=== PATIENT | female | born 1945 | race Caucasian/White ===

== ENCOUNTER 2019-02-21 16:46 | Inpatient (IN) ==
[2019-02-21] MEDS ORDERED: IOPAMIDOL 100 ML BOTTLE IV ONE (16:47)
--- NOTE | 2019-02-21 18:58 | Emergency Department Note ---
Weakness HPI - General Chief complaint: Weakness Stated complaint: Barely eating, weak Time Seen by Provider: 02/21/19 18:32 Source: patient Mode of arrival: wheelchair Limitations: no limitations - History of Present Illness HPI Narrative: 73-year-old, rather medically complex, morbidly obese, female patient presents emergency department with vague constellation of worsening fatigue, anorexia, instability, dizziness, and generalized unwell feeling for approximately 4 weeks. She recently fractured her left foot. She tells me since that time she has had the above mentioned symptoms. Her and adult daughter, who are accompanying her, tell me that she is had a poor appetite from most a month. They mention her only eating "1 or 2 grapes a day". She is had a poor oral intake of fluid as well. Her mentions that she is having considerable difficulty simply moving from her couch into the bathroom (10-15 feet). She admits to feeling "cold all the time". She is unsure about subjective fevers. She denies sweats. She denies sinus congestion. She admits to a chronic runny nose. She admits to a productive cough. She is producing white in color sputum. She admits to urticaria and redness around both eyes for the last month . She denies any new exposures. She admits to worsening shortness of breath. She denies retrosternal chest pain or palpitations. She denies abdominal pain. She admits to ongoing nausea and occasional vomiting. She denies constipation or diarrhea. She admits to several skin ulcerations around her pannus that are being treated by wound specialists and home nursing staff. She admits to genera lized weakness but no focal weakness. A review of her active problems shows the following: Closed fibular fracture, hyperparathyroidism, arthritis, hypothyroidism, hyperlipidemia, hypertension, breast CA, gout, vertigo, morbid obesity, poorly controlled type 2 diabetes, chronic low back pain, chronic kidney disease, hyperlipidemia, left lower extremity lymphedema. - Related Data Home Medications Medication Instructions Recorded Confirmed allopurinol 300 mg tablet 300 mg PO QDAY 12/08/17 01/24/19 anastrozole 1 mg tablet 1 mg PO QDAY 12/08/17 12/08/17 aspirin 81 mg tablet,delayed 81 mg PO QDAY 12/08/17 01/24/19 release ergocalciferol (vitamin D2) 1,000 tab PO 12/08/17 04/05/18 unit tablet levothyroxine 150 mcg capsule 300 mcg PO QDAY 12/08/17 01/24/19 simvastatin 40 mg tablet 40 mg PO QHS 12/08/17 01/24/19 furosemide 20 mg tablet 20 mg PO QDAY 01/24/19 01/24/19 gabapentin 300 mg capsule 300 mg PO QID PRN cap 01/24/19 01/24/19 insulin aspart U-100 100 unit/mL See Rx Instructions SUB-Q .COMPLEX 01/24/19 01/24/19 (3 mL) subcutaneous pen PRN insulin glargine U-300 conc 300 74 unit SUB-Q QAM ml 01/24/19 01/24/19 unit/mL (3 mL) subcutaneous pen krill 300 mg-omega 3 90 mg-dha 24 1 cap PO QDAY 01/24/19 01/24/19 mg-epa 50 [id number] capsule lisinopril 10 mg tablet 10 mg PO QDAY 01/24/19 01/24/19 polyethylene glycol 3350 17 17 g PO QDAY PRN 01/24/19 01/24/19 gram/dose oral powder sennosides 8.6 mg tablet 8.6 mg PO QDAY tab 01/24/19 01/24/19 sodium phosphates 19 gram-7 118 ml PA ONCE 01/24/19 01/24/19 gram/118 mL enema tramadol 50 mg tablet See Rx Instructions PO Q6H PRN tab 01/24/19 01/24/19 Previous Rx's Medication Instructions Recorded hydrocodone 5 mg-acetaminophen 325 1 tab PO Q6H PRN #15 tab 04/10/18 mg tablet Allergies Allergy/AdvReac Type Severity Reaction Status Date / Time No Known Drug Allergies Allergy Verified 04/05/18 13:46 Review of Systems All systems ED: reviewed and negative except as stated. Past Medical History - Social History smoking status: Never smoker Physical Exam Limitations: physical limitation (Patient is morbidly obese with a large pannus making abdominal examination very difficult.) General appearance: alert, in no apparent distress (No acute respiratory distress.), malaise, obese, sleepy Head: atraumatic, normocephalic Eye: Present: normal appearance, PERRL, EOMI, other (Erythema surrounding both eyes. No excessive tearing. No other drainage.). Absent: scleral icterus, conjunctival injection ENT: Present: normal oropharynx, mucous membranes dry. Absent: nasal congestion Neck: Present: trachea midline. Absent: lymphadenopathy, thyromegaly Chest: Present: symmetric chest wall rise Respiratory: Present: normal lung sounds bilaterally. Absent: respiratory distress, rales/crackles, wheezes, stridor, accessory muscle use Cardiovascular: Present: regular rate, normal rhythm. Absent: systolic murmur, diastolic murmur Abdominal: Present: soft, tenderness, diminished bowel sounds, other (Patient has an extremely large abdomen and pannus. This makes the abdominal exam significantly difficult. She did experience some tenderness to palpation of the left upper quadrant on exam.). Absent: guarding, rebound Abdominal tenderness: Present: LUQ, mild Extremities: Present: full ROM, normal capillary refill, pedal edema, pretibial edema. Absent: normal inspection, calf tenderness Back: Present: full ROM. Absent: tenderness Neurological: Present: alert, oriented X3, motor sensory deficit (Strength testing 5/5 to upper lower extremities.). Absent: normal gait (Patient been using motorized wheelchair.) Psychiatric: Present: depressed, anxious Skin: Present: warm, dry, other (Rash around both eyes as mentioned. Patient h as a somewhat foul-smelling superficial skin ulcer to the left side of her pannus. This is some clear drainage. No streaking.) Course Course Narrative: Patient was brought into the emergency department and a history and physical exam was performed. She currently has a vascular port that was accessed. Laboratory studies were drawn. Patient is given normal saline 1000 mL bolus. A review of her laboratory studies show the following: CBC hemoglobin 15.5, hematocrit 48.7, platelet count 136, all others normal limits. CMP chloride 93, carbon dioxide 20, anion gap 22, BUN 28, creatinine 1.5, GFR 34, glucose 1.81, calcium 12.8, alkaline phosphatase 189, all others normal limits. Lactic acid 1.8. After reviewing all this data I discussed the findings with our hospitalist (Dr. Tobar). At this time Dr. Tobar mention that she is rather dehydrated and would need aggressive fluid rehydration due to her calcium issue. He reviewed her medication list and recommended holding both the patient's Lasix and lisinopril at discharge until seen be seen by PCP. He did recommend close follow-up with this Sunday (02/24) with her PCP. With this in mind, I ordered a second 1000 mL bolus of normal saline and added a TSH to her labs. At shift change, she has continued to receive the IV fluid boluses as previously ordered. It is my understanding that the patient is wanting to stay and possibly be admitted to a correction for further convalescence. Based on her clinical findings today she likely does not meet criteria for hospital admission. At shift change I discussed the case with my collaborating physician (Dr. Barrett) who is now assumed the patient's care. All further treatment decisions, modalities, and ultimate disposition will be carried out by Dr. Barrett. Vital Signs Temperature 96.8 F L 02/21/19 16:56 Pulse Rate 70 02/21/19 16:56 Respiratory Rate 20 02/21/19 16:56 Blood Pressure 91/63 02/21/19 16:56 Pulse Oximetry (%) 97 02/21/19 16:56 Temperature 96.8 F L 02/21/19 16:56 Pulse Rate 94 H 02/21/19 21:49 Respiratory Rate 20 02/21/19 16:56 Blood Pressure 112/60 02/21/19 21:49 Pulse Oximetry (%) 100 02/21/19 21:49 Weakness - Lab Data Lab results reviewed: Yes I reviewed the patient's lab results. Result diagrams: 02/21/19 19:41 02/21/19 19:41 Lab Results 02/21/19 02/21/19 02/21/19 Range/Units 19:41 19:41 19:41 WBC 9.9 (4.5-11.0) K/mcL RBC 5.18 (4.00-5.20) M/mcL Hgb 15.5 H (12.0-15.0) g/dL Hct 48.7 H (36.0-48.0) % MCV 93.9 (80.0-100.0) fL MCH 29.9 (26.0-34.0) pg MCHC 31.9 (31.0-36.0) g/dL RDW 13.9 (11.5-14.5) % Plt Count 136 L (140-440) K/mcL MPV 13.7 H (7.4-10.4) fL Gran % 75.2 (38.0-78.0) % Lymph % (Auto) 15.4 L (15.5-49.0) % Vance % (Auto) 9.0 (1.0-12.0) % Eos % (Auto) 0.1 (0.0-7.0) % Baso % (Auto) 0.3 (0.0-2.0) % Gran # 7.4 (1.8-8.0) K/mcL Lymph # (Auto) 1.5 (1.5-4.8) K/mcL Vance # (Auto) 0.9 (0.1-0.9) K/mcL Eos # (Auto) 0 (0.0-0.7) K/mcL Baso # (Auto) 0 (0.0-0.3) K/mcL VBG Lactic Acid 1.8 (0.5-2.0) mmol/L Sodium 135 (133-145) mmol/L Potassium 3.9 (3.3-5.1) mmol/L Chloride 93 L (96-108) mmol/L Carbon Dioxide 20 L (22-30) mmol/L Anion Gap 22.0 H (8-16) BUN 28 H (8-23) mg/dl Creatinine 1.5 H (0.6-1.1) mg/dl GFR Calculation 34 Glucose 181 H (70-105) mg/dL Calcium 12.8 H (8.6-10.4) mg/dl Total Bilirubin 0.5 (0.0-1.0) mg/dL AST 17 (0-37) U/l ALT 8 (0-40) U/l Alkaline Phosphatase 189 H (39-117) U/L Total Protein 6.8 (5.9-8.4) gm/dL Albumin 3.5 (3.2-5.2) gm/dL Globulin 3.3 (2.2-3.7) gm/dL Albumin/Globulin Ratio 1.1 (1.0-2.3) TSH (0.27-5.01) uIU/ml Urine Color Urine Appearance Urine pH (5.0-9.0) Ur Specific [place] (1.000-1.035) Urine Protein (NEG) mg/dL Urine Glucose (UA) (NEG) mg/dL Urine Ketones (NEG) mg/dL Urine Occult Blood (<0.03) mg/dL Urine Nitrate (NEG) Urine Bilirubin (NEG) mg/dL Urine Ictotest (NEG) Urine Urobilinogen (NEG) mg/dL Ur Leukocyte Esterase (NEG) /uL Urine RBC (0-1) /hpf Urine WBC (0-4) /hpf Ur Squamous Epith Cells (0-4) /hpf Calcium Oxalate Crystal (0) /hpf Amorphous Crystals (0) /hpf Urine Bacteria (0) /hpf Hyaline Casts (0-2) /lpf Urine Mucus (0) /hpf Ur Culture Indicated? 02/21/19 02/21/19 Range/Units 19:41 20:25 WBC (4.5-11.0) K/mcL RBC (4.00-5.20) M/mcL Hgb (12.0-15.0) g/dL Hct (36.0-48.0) % MCV (80.0-100.0) fL MCH (26.0-34.0) pg MCHC (31.0-36.0) g/dL RDW (11.5-14.5) % Plt Count (140-440) K/mcL MPV (7.4-10.4) fL Gran % (38.0-78.0) % Lymph % (Auto) (15.5-49.0) % Vance % (Auto) (1.0-12.0) % Eos % (Auto) (0.0-7.0) % Baso % (Auto) (0.0-2.0) % Gran # (1.8-8.0) K/mcL Lymph # (Auto) (1.5-4.8) K/mcL Vance # (Auto) (0.1-0.9) K/mcL Eos # (Auto) (0.0-0.7) K/mcL Baso # (Auto) (0.0-0.3) K/mcL VBG Lactic Acid (0.5-2.0) mmol/L Sodium (133-145) mmol/L Potassium (3.3-5.1) mmol/L Chloride (96-108) mmol/L Carbon Dioxide (22-30) mmol/L Anion Gap (8-16) BUN (8-23) mg/dl Creatinine (0.6-1.1) mg/dl GFR Calculation Glucose (70-105) mg/dL Calcium (8.6-10.4) mg/dl Total Bilirubin (0.0-1.0) mg/dL AST (0-37) U/l ALT (0-40) U/l Alkaline Phosphatase (39-117) U/L Total Protein (5.9-8.4) gm/dL Albumin (3.2-5.2) gm/dL Globulin (2.2-3.7) gm/dL Albumin/Globulin Ratio (1.0-2.3) TSH 0.02 L (0.27-5.01) uIU/ml Urine Color Molly Urine Appearance Cloudy Urine pH 5.0 (5.0-9.0) Ur Specific [place] 1.024 (1.000-1.035) Urine Protein 100 A (NEG) mg/dL Urine Glucose (UA) 50 A (NEG) mg/dL Urine Ketones 5/tr A (NEG) mg/dL Urine Occult Blood Neg (<0.03) mg/dL Urine Nitrate Neg (NEG) Urine Bilirubin Neg (NEG) mg/dL Urine Ictotest Neg (NEG) Urine Urobilinogen 4.0 A (NEG) mg/dL Ur Leukocyte Esterase Neg (NEG) /uL Urine RBC 6 H (0-1) /hpf Urine WBC 3 (0-4) /hpf Ur Squamous Epith Cells 5 H (0-4) /hpf Calcium Oxalate Crystal Few A (0) /hpf Amorphous Crystals Few A (0) /hpf Urine Bacteria 0 (0) /hpf Hyaline Casts 72 H (0-2) /lpf Urine Mucus Mod (0) /hpf Ur Culture Indicated? No - EKG Data EKG attestation: Yes I reviewed and interpreted this EKG., Yes There are no EKG findings of acute coronary syndrome, Yes This EKG will be read by dentist attendant Disposition Pt seen by APPRENTICE MACHINIST OUTSIDE/PA only: No (Dr. Barrett) Clinical Impression: Dehydration, Morbid (severe) obesity due to excess calories, Hypercalcemia, Physical deconditioning Chronic kidney disease Qualifiers: Chronic kidney disease stage: stage 3 (moderate) Qualified Code(s): N18.3 - Chronic kidney disease, stage 3 (moderate) Disposition: Still a Patient Condition: Serious Additional Instructions: At shift change patient care is being transferred to my collaborating physician (Dr. Barrett). All further treatment decisions, more to have the patient disposition is going to be carried out by him. Referrals: Estrella Luz ARNP [Nurse Practitioner] -
[2019-02-21] MEDS ORDERED: 0.9 % SODIUM CHLORIDE 1,000 ML IV ONE ×2 (19:03→21:32)
[2019-02-21 20:50] LABS: ALT/SGPT 8 U/l (0-40); AST/SGOT 17 U/l (0-37); Albumin 3.5 gm/dL (3.2-5.2); Albumin/Globulin Ratio 1.1 (1.0-2.3); Alkaline Phosphatase 189 U/L (39-117); Bilirubin,Total 0.5 mg/dL (0.0-1.0); Blood Urea Nitrogen 28 mg/dl (8-23); Calcium 12.8 mg/dl (8.6-10.4); Carbon Dioxide 20 mmol/L (22-30); Globulin 3.3 gm/dL (2.2-3.7); Glomerular Filtration Rate 34; Glucose 181 mg/dL (70-105)
[2019-02-21 20:55] LABS: Basophils # (Auto) 0 K/mcL (0.0-0.3); Basophils % (Auto) 0.3 % (0.0-2.0); Eosinophils # (Auto) 0 K/mcL (0.0-0.7); Eosinophils % (Auto) 0.1 % (0.0-7.0); Granulocytes % (Auto) 75.2 % (38.0-78.0); Hematocrit 48.7 % (36.0-48.0); Hemoglobin 15.5 g/dL (12.0-15.0); Lymphocytes # (Auto) 1.5 K/mcL (1.5-4.8); Lymphocytes % (Auto) 15.4 % (15.5-49.0); Mean Cell Volume 93.9 fL (80.0-100.0); Mean Corpuscular HGB Conc 31.9 g/dL (31.0-36.0); Mean Platelet Volume 13.7 fL (7.4-10.4); Monocytes # (Auto) 0.9 K/mcL (0.1-0.9); Platelet Count 136 K/mcL (140-440); RBC 5.18 M/mcL (4.00-5.20); Red Cell Distribution Width 13.9 % (11.5-14.5); WBC 9.9 K/mcL (4.5-11.0)
[2019-02-21 20:58] LABS: Chloride 93 mmol/L (96-108)
[2019-02-21 21:30] LABS: Appearance,Urine CLOUDY; Bacteria,Urine 0 /hpf (0); Bilirubin,Urine NEG (NEG); Calcium Oxalate Crystals,Urine FEW /hpf (0); Color,Urine AMBER; Culture Indicated,Urine NO; Glucose,Urine (UA) 50 mg/dL (NEG); Ictotest,Urine NEG (NEG); Ketones,Urine 5/TR mg/dL (NEG); Leukocyte Esterase,Urine NEG /uL (NEG); Mucus,Urine MOD /hpf (0); Nitrate,Urine NEG (NEG); Protein,Urine 100 mg/dL (NEG); Specific Gravity,Urine 1.024 (1.000-1.035); Urine Amorphous Crystals FEW /hpf (0); Urine Blood NEG mg/dL (<0.03); Urine Hyaline Cast 72 /lpf (0-2); Urine RBC 6 /hpf (0-1); Urine Squamous Epithelial Cell 5 /hpf (0-4); Urine WBC 3 /hpf (0-4)
[2019-02-21] MEDS ORDERED: ONDANSETRON 4 MG/2 ML VIAL IV ONE (22:53)
[2019-02-21] MEDS ORDERED: ONDANSETRON 4 MG/2 ML VIAL ONE (22:55)
--- NOTE | 2019-02-22 01:50 | Emergency Department Note ---
Weakness HPI - General Chief complaint: Weakness Stated complaint: Barely eating, weak Time Seen by Provider: 02/21/19 18:32 Source: patient Mode of arrival: wheelchair Limitations: physical limitation (Patient is morbidly obese with a large pannus making abdominal examination very difficult.) - History of Present Illness HPI Narrative: See history and physical dictated by Andrew Summers PA-C (Sonny). I am following up patient after change in shift. She gives history of 4 weeks of not feeling well and eating poorly as well as some shortness of breath. Labs reviewed included lactic acid 1.8, BUN 28 creatinine 1.5, calcium 12.8, alkaline phosphatase 189. She currently has a Port-A-Cath. Family is pointing out that they are no longer able to really take good care of her based on her multiple medical conditions and problems that include urinary incontinence, imbalance and falls, severe weight, etc. She has not been able to reliably ambulate or shower herself. She is developed sores on the underside of her panniculus and on her right buttocks. She has seen oncology 2 months ago and is not scheduled to recheck with them for an additional multiple months, i.e., 6 months after the last visit. Patient gets free nauseated and sometimes vomits or dry heaves when she tries to be more active such as getting into the bathroom. She is unable to wipe her self and clean herself; she is unable to shower by herself. Even just 1 month ago she was being quite a bit more active. - Related Data Home Medications Medication Instructions Recorded Confirmed allopurinol 300 mg tablet 300 mg PO QDAY 12/08/17 02/22/19 aspirin 81 mg tablet,delayed 81 mg PO QDAY 12/08/17 02/22/19 release levothyroxine 150 mcg capsule 300 mcg PO QDAY 12/08/17 02/22/19 furosemide 20 mg tablet 20 mg PO QDAY 01/24/19 02/22/19 insulin aspart U-100 100 unit/mL See Rx Instructions SUB-Q .COMPLEX 01/24/19 01/24/19 (3 mL) subcutaneous pen PRN insulin glargine U-300 conc 300 74 unit SUB-Q QAM ml 01/24/19 01/24/19 unit/mL (3 mL) subcutaneous pen krill 300 mg-omega 3 90 mg-dha 24 1 cap PO QDAY 01/24/19 02/22/19 mg-epa 50 [id number] capsule lisinopril 10 mg tablet 10 mg PO QDAY 01/24/19 02/22/19 polyethylene glycol 3350 17 17 g PO QDAY PRN 01/24/19 02/22/19 gram/dose oral powder sennosides 8.6 mg tablet 8.6 mg PO QDAY tab 01/24/19 02/22/19 sodium phosphates 19 gram-7 118 ml VT ONCE 01/24/19 02/22/19 gram/118 mL enema tramadol 50 mg tablet See Rx Instructions PO Q6H PRN tab 01/24/19 02/22/19 Insulin Glargine,Hum.rec.anlog 80 units SQ QAM 02/22/19 02/22/19 [Jose Jo] Previous Rx's Medication Instructions Recorded hydrocodone 5 mg-acetaminophen 325 1 tab PO Q6H PRN #15 tab 04/10/18 mg tablet Allergies Allergy/AdvReac Type Severity Reaction Status Date / Time No Known Drug Allergies Allergy Verified 04/05/18 13:46 Past Medical History - Social History smoking status: Never smoker Physical Exam Limitations: physical limitation (Patient is morbidly obese with a large pannus making abdominal examination very difficult.) General appearance: alert, in no apparent distress (No acute respiratory distress.), malaise, obese, sleepy Head: atraumatic, normocephalic Eye: Present: EOMI Chest: Present: symmetric chest wall rise Respiratory: Absent: respiratory distress Abdominal: Present: other (very large) Neurological: Present: alert, oriented X3 Psychiatric: Present: normal affect, normal mood Course Vital Signs Temperature 96.8 F L 02/21/19 16:56 Pulse Rate 70 02/21/19 16:56 Respiratory Rate 20 02/21/19 16:56 Blood Pressure 91/63 02/21/19 16:56 Pulse Oximetry (%) 97 02/21/19 16:56 Temperature 98.6 F 02/22/19 02:24 Pulse Rate 107 H 02/22/19 02:24 Respiratory Rate 18 02/22/19 02:17 Blood Pressure 137/70 02/22/19 02:16 Pulse Oximetry (%) 96 02/22/19 02:24 Weakness - Lab Data Lab results reviewed: Yes I reviewed the patient's lab results. Result diagrams: 02/21/19 19:41 02/21/19 19:41 Lab Results 02/21/19 02/21/19 02/21/19 Range/Units 19:41 19:41 19:41 WBC 9.9 (4.5-11.0) K/mcL RBC 5.18 (4.00-5.20) M/mcL Hgb 15.5 H (12.0-15.0) g/dL Hct 48.7 H (36.0-48.0) % MCV 93.9 (80.0-100.0) fL MCH 29.9 (26.0-34.0) pg MCHC 31.9 (31.0-36.0) g/dL RDW 13.9 (11.5-14.5) % Plt Count 136 L (140-440) K/mcL MPV 13.7 H (7.4-10.4) fL Gran % 75.2 (38.0-78.0) % Lymph % (Auto) 15.4 L (15.5-49.0) % [place] % (Auto) 9.0 (1.0-12.0) % Eos % (Auto) 0.1 (0.0-7.0) % Baso % (Auto) 0.3 (0.0-2.0) % Gran # 7.4 (1.8-8.0) K/mcL Lymph # (Auto) 1.5 (1.5-4.8) K/mcL [place] # (Auto) 0.9 (0.1-0.9) K/mcL Eos # (Auto) 0 (0.0-0.7) K/mcL Baso # (Auto) 0 (0.0-0.3) K/mcL VBG Lactic Acid 1.8 (0.5-2.0) mmol/L Sodium 135 (133-145) mmol/L Potassium 3.9 (3.3-5.1) mmol/L Chloride 93 L (96-108) mmol/L Carbon Dioxide 20 L (22-30) mmol/L Anion Gap 22.0 H (8-16) BUN 28 H (8-23) mg/dl Creatinine 1.5 H (0.6-1.1) mg/dl GFR Calculation 34 Glucose 181 H (70-105) mg/dL Calcium 12.8 H (8.6-10.4) mg/dl Total Bilirubin 0.5 (0.0-1.0) mg/dL AST 17 (0-37) U/l ALT 8 (0-40) U/l Alkaline Phosphatase 189 H (39-117) U/L Total Protein 6.8 (5.9-8.4) gm/dL Albumin 3.5 (3.2-5.2) gm/dL Globulin 3.3 (2.2-3.7) gm/dL Albumin/Globulin Ratio 1.1 (1.0-2.3) TSH (0.27-5.01) uIU/ml Urine Color Urine Appearance Urine pH (5.0-9.0) Ur Specific [place] (1.000-1.035) Urine Protein (NEG) mg/dL Urine Glucose (UA) (NEG) mg/dL Urine Ketones (NEG) mg/dL Urine Occult Blood (<0.03) mg/dL Urine Nitrate (NEG) Urine Bilirubin (NEG) mg/dL Urine Ictotest (NEG) Urine Urobilinogen (NEG) mg/dL Ur Leukocyte Esterase (NEG) /uL Urine RBC (0-1) /hpf Urine WBC (0-4) /hpf Ur Squamous Epith Cells (0-4) /hpf Calcium Oxalate Crystal (0) /hpf Amorphous Crystals (0) /hpf Urine Bacteria (0) /hpf Hyaline Casts (0-2) /lpf Urine Mucus (0) /hpf Ur Culture Indicated? 02/21/19 02/21/19 Range/Units 19:41 20:25 WBC (4.5-11.0) K/mcL RBC (4.00-5.20) M/mcL Hgb (12.0-15.0) g/dL Hct (36.0-48.0) % MCV (80.0-100.0) fL MCH (26.0-34.0) pg MCHC (31.0-36.0) g/dL RDW (11.5-14.5) % Plt Count (140-440) K/mcL MPV (7.4-10.4) fL Gran % (38.0-78.0) % Lymph % (Auto) (15.5-49.0) % [place] % (Auto) (1.0-12.0) % Eos % (Auto) (0.0-7.0) % Baso % (Auto) (0.0-2.0) % Gran # (1.8-8.0) K/mcL Lymph # (Auto) (1.5-4.8) K/mcL [place] # (Auto) (0.1-0.9) K/mcL Eos # (Auto) (0.0-0.7) K/mcL Baso # (Auto) (0.0-0.3) K/mcL VBG Lactic Acid (0.5-2.0) mmol/L Sodium (133-145) mmol/L Potassium (3.3-5.1) mmol/L Chloride (96-108) mmol/L Carbon Dioxide (22-30) mmol/L Anion Gap (8-16) BUN (8-23) mg/dl Creatinine (0.6-1.1) mg/dl GFR Calculation Glucose (70-105) mg/dL Calcium (8.6-10.4) mg/dl Total Bilirubin (0.0-1.0) mg/dL AST (0-37) U/l ALT (0-40) U/l Alkaline Phosphatase (39-117) U/L Total Protein (5.9-8.4) gm/dL Albumin (3.2-5.2) gm/dL Globulin (2.2-3.7) gm/dL Albumin/Globulin Ratio (1.0-2.3) TSH 0.02 L (0.27-5.01) uIU/ml Urine Color Molly Urine Appearance Cloudy Urine pH 5.0 (5.0-9.0) Ur Specific [place] 1.024 (1.000-1.035) Urine Protein 100 A (NEG) mg/dL Urine Glucose (UA) 50 A (NEG) mg/dL Urine Ketones 5/tr A (NEG) mg/dL Urine Occult Blood Neg (<0.03) mg/dL Urine Nitrate Neg (NEG) Urine Bilirubin Neg (NEG) mg/dL Urine Ictotest Neg (NEG) Urine Urobilinogen 4.0 A (NEG) mg/dL Ur Leukocyte Esterase Neg (NEG) /uL Urine RBC 6 H (0-1) /hpf Urine WBC 3 (0-4) /hpf Ur Squamous Epith Cells 5 H (0-4) /hpf Calcium Oxalate Crystal Few A (0) /hpf Amorphous Crystals Few A (0) /hpf Urine Bacteria 0 (0) /hpf Hyaline Casts 72 H (0-2) /lpf Urine Mucus Mod (0) /hpf Ur Culture Indicated? No Disposition Pt seen by GROUP EXERCISE INSTRUCTOR/PA only: No Clinical Impression: Dehydration, Morbid (severe) obesity due to excess calories, Hypercalcemia, Physical deconditioning, Iatrogenic hyperthyroidism, Anorexia, Self-care deficit for bathing and hygiene, Bedridden, Elevated alkaline phosphatase level Chronic kidney disease Qualifiers: Chronic kidney disease stage: stage 3 (moderate) Qualified Code(s): N18.3 - Chronic kidney disease, stage 3 (moderate) Summary: With patient's significant anorexia and poor oral intake with some described vomiting, CT scan of the abdomen was obtained and this was read as unremarkable/negative. Labs were reviewed and summarized in her disposition. She is being admitted to observation under Dr. Tobar. I spoke with him and with warehouse shipping clerk. Patient has significant risk and major concerns and self-care deficits and inability of family to take care of her such that returning home is significantly problematic and harmful to patient. Orders written for her for hospital care. Of note is that no GI is available for consultation or upper endoscopy. Consider if surgeon potentially would do upper scope. Disposition: Xfer As Outpt/Obs ([facility]) Condition: Serious Referrals: Estrella Luz ARNP [Nurse Practitioner] -
[2019-02-22] MEDS ORDERED: ONDANSETRON 4 MG/2 ML VIAL IV PRN ×2 (02:33→10:06)
[2019-02-22] MEDS ORDERED: ONDANSETRON 4 MG/2 ML VIAL IV ONE (02:43)
[2019-02-22] MEDS ORDERED: LACTATED RINGERS 1,000 ML IV SCH (02:45)
[2019-02-22 05:07] LABS: Basophils # (Auto) 0 K/mcL (0.0-0.3); Basophils % (Auto) 0.1 % (0.0-2.0); Eosinophils # (Auto) 0 K/mcL (0.0-0.7); Eosinophils % (Auto) 0.4 % (0.0-7.0); Hematocrit 43.5 % (36.0-48.0); Hemoglobin 13.6 g/dL (12.0-15.0); Lymphocytes # (Auto) 1.7 K/mcL (1.5-4.8); Lymphocytes % (Auto) 15.1 % (15.5-49.0); Mean Cell Volume 95.6 fL (80.0-100.0); Mean Corpuscular HGB Conc 31.4 g/dL (31.0-36.0); Mean Platelet Volume 12.7 fL (7.4-10.4); Monocytes # (Auto) 1.6 K/mcL (0.1-0.9); Monocytes % (Auto) 13.4 % (1.0-12.0); Platelet Count 164 K/mcL (140-440); RBC 4.55 M/mcL (4.00-5.20); Red Cell Distribution Width 13.9 % (11.5-14.5); WBC 11.6 K/mcL (4.5-11.0)
[2019-02-22 05:33] LABS: Bilirubin,Direct < 0.2 mg/dL (0.0-0.3); Chloride 100 mmol/L (96-108)
[2019-02-22 05:36] LABS: ALT/SGPT < 5 U/l (0-40); AST/SGOT 14 U/l (0-37); Albumin 2.7 gm/dL (3.2-5.2); Albumin/Globulin Ratio 0.8 (1.0-2.3); Alkaline Phosphatase 165 U/L (39-117); Bilirubin,Total 0.4 mg/dL (0.0-1.0); Blood Urea Nitrogen 31 mg/dl (8-23); Calcium 11.4 mg/dl (8.6-10.4); Carbon Dioxide 19 mmol/L (22-30); Globulin 3.3 gm/dL (2.2-3.7); Glomerular Filtration Rate 34; Glucose 159 mg/dL (70-105); Lactate Dehydrogenase 259 U/L (94-250); Triglycerides 132 mg/dl (<150)
[2019-02-22] MEDS ORDERED: MAGNESIUM SULFATE 2 GM/50 ML BAG IV ONE (07:20)
--- NOTE | 2019-02-22 07:25 | Internal Med History&Physical ---
Medical - H&P: [facility] Patient information: Note initiated : 02/22/19 at 7:22 am Service Date, if different from initiated Date: [] Patient: Mel Peacock a 73 y/o F admitted on 02/22/19 for Barely eating, weak. Chief Complaint: [] History of present illness: Ms. Peacock is a 73 year old F Presents to the ED with generalized weakness malaise/ poor appetite/ nausea, tachycardia, dyspnea on exertion. Feeling cold all the time. Has itchy eyes. Denies sweats chest pain abdominal pain diarrhea. This is been going on for about 4 weeks, around the time she fractured her left foot. She has a Port-A-Cath for breast cancer last chemotherapy was year ago. Work-up in the ED included CT abdomen pelvis which was unremarkable. Laboratory work revealed including urine and indicative of volume depletion. TSH severely low. CXR unremarkable Review of Systems: Pertinent positives as above. Denies headache/fever/chills/vomiting/chest or abdominal pain/diarrhea. 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) Diabetes mellitus type II, uncontrolled (Chronic) Adenocarcinoma, breast (Resolved) Closed fibular fracture (Acute) Dehydration (Acute) Hypercalcemia (Acute) Physical deconditioning (Acute) Hyperparathyroidism (Chronic) Hyperlipidemia (Chronic) Hypertension (Chronic) Morbid (severe) obesity due to excess calories (Chronic) Body mass index (BMI) 40.0-44.9, adult (Chronic) Hypothyroidism (Chronic) Gout (Chronic) Arthritis (Chronic) Hypertensive chronic kidney disease with stage 1 through stage 4 chronic kidney disease, or unspecified chronic kidney disease (Chronic) Chronic kidney disease (Chronic) History of pancreatitis (Resolved) Gout (Chronic) Hyperlipidemia (Chronic) Hypothyroidism (Chronic) Chronic back pain (Chronic) Inguinal hernia (Chronic) Lymphedema of left lower extremity (Chronic) Lumbago with sciatica (Chronic) Vertigo (Chronic) Abdominal pain (Resolved) Acute back pain (Resolved) Past Surgical History (Last Updated 02/22/19 @ 01:34 by Danny Barrett DO) H/O hysterectomy for benign disease (Chronic) History of appendectomy (Chronic) History of appendectomy (Chronic) History of bilateral mastectomy (Chronic 12/19/12) History of cholecystectomy (Chronic) History of hernia repair (Chronic) History of hysterectomy (Chronic) History of tonsillectomy (Chronic) History of tonsillectomy and adenoidectomy (Chronic) Hx of cholecystectomy (Chronic) Family History (Last Updated 01/24/19 @ 12:07 by Poppy Russell) Mother Heart disease Kidney failure Father Alzheimers disease Other Cancer Diabetes Prostate cancer Social History (Last Updated 01/24/19 @ 12:06 by Poppy Russell) Denies tobacco use Denies alcohol use Ambulates with a walker Lives with family Medical - H&P: Meds Home Medications Medication Instructions Recorded Confirmed Type allopurinol 300 mg tablet 300 mg PO QDAY 12/08/17 02/22/19 History aspirin 81 mg tablet,delayed 81 mg PO QDAY 12/08/17 02/22/19 History release levothyroxine 150 mcg capsule 300 mcg PO QDAY 12/08/17 02/22/19 History furosemide 20 mg tablet 20 mg PO QDAY 01/24/19 02/22/19 History insulin aspart U-100 100 unit/mL See Rx Instructions SUB-Q .COMPLEX 01/24/19 02/22/19 History (3 mL) subcutaneous pen PRN insulin glargine U-300 conc 300 30 unit SUB-Q QAM ml 01/24/19 02/22/19 History unit/mL (3 mL) subcutaneous pen krill 300 mg-omega 3 90 mg-dha 24 1 cap PO QDAY 01/24/19 02/22/19 History mg-epa 50 [id number] capsule lisinopril 10 mg tablet 10 mg PO QDAY 01/24/19 02/22/19 History polyethylene glycol 3350 17 17 g PO QDAY PRN 01/24/19 02/22/19 History gram/dose oral powder sennosides 8.6 mg tablet 8.6 mg PO QDAY tab 01/24/19 02/22/19 History tramadol 50 mg tablet See Rx Instructions PO Q6H PRN tab 01/24/19 02/22/19 History Insulin Glargine,Hum.rec.anlog 80 units SQ QAM 02/22/19 02/22/19 History [Toujeo Solostar] Allergies Allergy/AdvReac Type Severity Reaction Status Date / Time No Known Drug Allergies Allergy Verified 04/05/18 13:46 Medical - H&P: Exam - Constitutional Vitals: Temp Pulse Resp BP Pulse Ox 97.8 F 102 H 20 117/60 94 02/22/19 07:17 02/22/19 03:10 02/22/19 07:17 02/22/19 07:17 02/22/19 07:17 Exam: General: , Awake, No acute Distress, obese Eyes/N/T: EOMI, PERRL, DMM Head/Neck: neck supple, normocephalic atraumatic CV: Active irregular, No murmurs, normal s1/s2 Pulm: Clear b/l, no wheezing/rhonchi/rales Abd: soft, nontender, +BS x4 Ext: no clubbing/cyanosis. Mild b/l LE edema Neuro: appears quite fatigued/lethargic no focal deficits, moves all extremities, CN 2-12 grossly intact, symmetrical strength b/l upper/lower, sensations intact b/l upper/lower Skin: warm/dry Medical - H&P: Reslt - Labs CBC & Chem 7: 02/22/19 04:00 02/22/19 04:00 Labs: Short CBC 02/21/19 02/22/19 Range/Units 19:41 04:00 WBC 9.9 11.6 H (4.5-11.0) K/mcL Hgb 15.5 H 13.6 (12.0-15.0) g/dL Hct 48.7 H 43.5 (36.0-48.0) % Plt Count 136 L 164 (140-440) K/mcL BMP 02/21/19 02/22/19 19:41 04:00 Sodium 135 140 Potassium 3.9 4.0 Chloride 93 L 100 Carbon Dioxide 20 L 19 L BUN 28 H 31 H Creatinine 1.5 H 1.5 H Glucose 181 H 159 H Calcium 12.8 H 11.4 H Liver Function 02/21/19 02/22/19 Range/Units 19:41 04:00 Total Bilirubin 0.5 0.4 (0.0-1.0) mg/dL Direct Bilirubin < 0.2 (0.0-0.3) mg/dL GGT 17 (5-36) U/L AST 17 14 (0-37) U/l ALT 8 < 5 (0-40) U/l Alkaline Phosphatase 189 H 165 H (39-117) U/L Albumin 3.5 2.7 L (3.2-5.2) gm/dL Urine // Range/Units 20:25 Urine Color Molly Urine Appearance Cloudy Urine pH 5.0 (5.0-9.0) Ur Specific [place] 1.024 (1.000-1.035) Urine Protein 100 A (NEG) mg/dL Urine Glucose (UA) 50 A (NEG) mg/dL Medical - H&P: A/P - Narrative A/P Narrative: A: *Generalized weakness/malaise/poor appetite/increasing weakness/Tachy/RIVAS: 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
[2019-02-22] MEDS ORDERED: DEXTROSE 50% 50 ML VIAL IV PRN ×2 (07:27→10:06)
[2019-02-22] MEDS ORDERED: DEXTROSE 31 GM ORAL.SUSP PO PRN ×2 (07:27→10:06)
[2019-02-22] MEDS ORDERED: INSULIN LISPRO 1 UNIT/0.01 ML UNIT SQ SCH (07:30)
[2019-02-22 08:24] LABS: Free T4 (Free Thyroxine) 3.24 ng/dl (0.7-1.7)
[2019-02-22] MEDS ORDERED: SENNOSIDES 1 TABLET PO PRN (10:06)
[2019-02-22] MEDS ORDERED: POTASSIUM CHLORIDE 20 MEQ TABLET PO PRN ×2 (10:06)
[2019-02-22] MEDS ORDERED: POTASSIUM CHLORIDE 40 MEQ in DEXTROSE 5% IN WATER 500 ML IV PRN (10:06)
[2019-02-22] MEDS ORDERED: IPRATROPIUM/ALBUTEROL 3 ML AMPUL.NEB NEB PRN (10:06)
[2019-02-22] MEDS ORDERED: ACETAMINOPHEN 325 MG TABLET PO PRN (10:06)
--- NOTE | 2019-02-22 10:06 | Cat Scan Report ---
History: Pain, nausea, weakness and history of breast cancer TECHNIQUE: The patient was imaged following oral Gastroview contrast and the injection of 70 cc of Isovue-370. Images were acquired from the diaphragm to the symphysis pubis. Sagittal and coronal reformats were created. The radiation exposure was limited using dose reduction technology. FINDINGS: There is poor opacification of the organs and vessels within the abdomen and pelvis. This could be due to dilution of the contrast in this very obese patient or a suboptimal injection. Probable scarring is present in both lung bases. The patient has had a bilateral mastectomies. Large retrocardiac hiatus hernia is present. There has some contrast in the stomach but the small and large intestine are not opacified. There is no apparent gastric outlet obstruction. Small area of fatty infiltration of the left lobe of the liver seen adjacent to the falciform ligament. The liver is relatively small but otherwise homogeneous, without evidence of metastasis. No abnormality seen within the small spleen. There is fatty infiltration of the pancreas. There is no evidence of pancreatic mass or inflammation. The adrenals are normal. Patient has an exophytic cyst arising from the upper pole of left kidney which measures up to 1.5 cm. The kidneys are otherwise normal with no stone or hydronephrosis. The aorta is normal in caliber. There are scattered plaques along the torres of the aorta and iliac arteries. The gallbladder, appendix, uterus and ovaries have been removed. No abdominal or pelvic mass abscess, adenopathy or ascites are present. Urinary bladder is decompressed. Patient has multiple ventral hernias and there are postsurgical changes following prior hernia repairs. To the right of midline in the mid anterior abdominal wall, the mesh appears to have partially detached and has a crenulated contour. Along the inferior border of this mesh there is a recurrent defect. Abdominal wall with mild protrusion of the transverse colon through this defect. This is not causing obstruction and there is no inflammation. In the midline of the pelvis there is another ventral hernia which contains a loop of small intestine. There is no obstruction or inflammation. Pancake-like fluid collection with thick torres and calcifications along the wall. It measures roughly 16 cm in transverse dimension, 2 cm in greatest thickness and 4 cm in craniocaudal dimension. This may be an old organized hematoma. There is no inflammation of the adjacent fat or muscles. There are couple noninflamed diverticula in the sigmoid colon. Small intestine is nondilated. Patient has compression fractures from T11 through L5 due to underlying osteoporosis. No lytic or blastic metastasis are identified. Numerous calcified injection granulomata are present in the subcutaneous fat in the anterior pelvic wall. IMPRESSION: Large hiatus hernia Recurrent ventral hernias containing nonobstructed segments of transverse colon and ileum No acute abnormality is identified. Interpreted and Authenticated by: Blu Fairbanks 02/22/19
[2019-02-22] MEDS: 0.9 % SODIUM CHLORIDE 1,000 ML IV SCH ×2 (10:24→20:50)
--- NOTE | 2019-02-22 10:24 | XRay Report ---
HISTORY: Cough, breast cancer FINDINGS: There is a large opacity behind the left heart border. This represents a large hiatus hernia which was documented on the preceding abdomen CT scan. The lungs are otherwise clear, without evidence of pneumonia or metastasis. Heart size is normal. There is no congestive heart failure. There is a Port-A-Cath placed via the left subclavian vein with the tip in the superior vena cava. There is no widening of the mediastinum. There are multiple surgical clips along both left and right lateral chest wall and axilla following prior mastectomies. IMPRESSION: Large hiatus hernia and no acute abnormality Interpreted and Authenticated by: Blu Fairbanks 02/22/19
[2019-02-22] MEDS: INSULIN LISPRO 1 UNIT/0.01 ML UNIT SQ SCH ×3 (11:31→21:00)
[2019-02-22] MEDS: INSULIN GLARGINE, HUMAN 1 UNIT/0.01 ML SQ SCH (11:31)
[2019-02-22] MEDS ORDERED: POLYVINYL ALCOHOL OPHTH DROPS 15ML BOTTLE OU PRN (11:46)
[2019-02-22] MEDS: 0.9 % SODIUM CHLORIDE 10 ML SYRINGE IV SCH ×2 (16:10→21:04)
[2019-02-22] MEDS: DOCUSATE SODIUM 100 MG CAPSULE PO SCH (20:59)
[2019-02-22] MEDS: ENOXAPARIN 40 MG/0.4 ML SYRINGE SQ SCH (20:59)
[2019-02-23] MEDS: 0.9 % SODIUM CHLORIDE 1,000 ML IV SCH ×2 (06:59→20:34)
[2019-02-23 07:12] LABS: Basophils # (Auto) 0 K/mcL (0.0-0.3); Basophils % (Auto) 0.1 % (0.0-2.0); Eosinophils # (Auto) 0.1 K/mcL (0.0-0.7); Eosinophils % (Auto) 1.4 % (0.0-7.0); Granulocytes % (Auto) 68.3 % (38.0-78.0); Hematocrit 38.4 % (36.0-48.0); Hemoglobin 12.2 g/dL (12.0-15.0); Lymphocytes # (Auto) 1.5 K/mcL (1.5-4.8); Lymphocytes % (Auto) 18.2 % (15.5-49.0); Mean Cell Volume 94.7 fL (80.0-100.0); Mean Corpuscular HGB Conc 31.7 g/dL (31.0-36.0); Mean Platelet Volume 12.7 fL (7.4-10.4); Platelet Count 157 K/mcL (140-440); RBC 4.05 M/mcL (4.00-5.20); Red Cell Distribution Width 14.3 % (11.5-14.5); WBC 8.5 K/mcL (4.5-11.0)
[2019-02-23 07:36] LABS: ALT/SGPT 6 U/l (0-40); AST/SGOT 12 U/l (0-37); Albumin 2.9 gm/dL (3.2-5.2); Albumin/Globulin Ratio 1.2 (1.0-2.3); Alkaline Phosphatase 150 U/L (39-117); Bilirubin,Direct < 0.2 mg/dL (0.0-0.3); Bilirubin,Total 0.4 mg/dL (0.0-1.0); Blood Urea Nitrogen 25 mg/dl (8-23); Calcium 11.1 mg/dl (8.6-10.4); Chloride 103 mmol/L (96-108); Globulin 2.5 gm/dL (2.2-3.7); Glomerular Filtration Rate 41; Glucose 137 mg/dL (70-105); Lactate Dehydrogenase 201 U/L (94-250); Phosphorous 2.7 mg/dL (2.7-4.5); Triglycerides 126 mg/dl (<150)
[2019-02-23 07:39] LABS: Carbon Dioxide 25 mmol/L (22-30)
[2019-02-23] MEDS: 0.9 % SODIUM CHLORIDE 10 ML SYRINGE IV SCH ×3 (07:39→21:53)
[2019-02-23] MEDS: INSULIN LISPRO 1 UNIT/0.01 ML UNIT SQ SCH ×4 (07:39→21:53)
[2019-02-23] MEDS: ALLOPURINOL 300 MG TABLET PO SCH (09:35)
[2019-02-23] MEDS: LISINOPRIL 10 MG TABLET PO SCH (09:35)
[2019-02-23] MEDS: DOCUSATE SODIUM 100 MG CAPSULE PO SCH ×2 (09:35→21:47)
[2019-02-23] MEDS: ASPIRIN 81 MG TAB.CHEW PO SCH (09:35)
[2019-02-23] MEDS: INSULIN GLARGINE, HUMAN 1 UNIT/0.01 ML SQ SCH (09:35)
[2019-02-23] MEDS: ENOXAPARIN 40 MG/0.4 ML SYRINGE SQ SCH ×2 (09:36→21:47)
[2019-02-23] MEDS ORDERED: OLOPATADINE 0.1% OPHTH DROPS 5ML BOTTLE OU SCH (13:28)
--- NOTE | 2019-02-23 15:57 | Ultrasound Report ---
History: Chronic kidney disease FINDINGS: Right kidney measures 5.0 x 5.2 x 9.4 cm left measures 4.4 x 5.3 x 10.6 cm. The cortex is relatively thin and echogenic bilaterally due to chronic medical renal disease. There is no evidence of a mass, cyst, calculus or hydronephrosis. The bladder contained 132 cc of urine. No mass or stone are seen within the lumen. We are unable to demonstrate flow of urine through either ureter into the bladder. IMPRESSION: Relatively small echogenic kidneys bilaterally with diminished urine output. This is due to chronic medical renal disease. Dehydration could also cause diminished urine output. Interpreted and Authenticated by: Blu Fairbanks 02/23/19
--- NOTE | 2019-02-23 16:36 | Internal Med Progress Note ---
Medical - PN: Subj Patient information: Note initiated : 02/23/19 at 4:34 pm Service Date, if different from initiated Date: [] Patient: Mel Peacock a 73 y/o F admitted on 02/22/19 for Barely eating, weak. Chief Complaint: Follow-up hypercalcemia, weakness Interval history: 02/22 Ms. Peacock is a 73 year old F Presents to the ED with generalized weakness malaise/ poor appetite/ nausea, tachycardia, dyspnea on exertion. Feeling cold all the time. Has itchy eyes. Denies sweats chest pain abdominal pain diarrhea. This is been going on for about 4 weeks, around the time she fractured her left foot. She has a Port-A-Cath for breast cancer last chemotherapy was year ago. Work-up in the ED included CT abdomen pelvis which was unremarkable. Laboratory work revealed including urine and indicative of volume depletion. TSH severely low. CXR unremarkable 02/23 Patient with hypercalcemia at presentation, has been made inpatient status due to combination of hypercalcemia and her symptoms. Interviewed patient along with her and daughter at bedside. Patient had mobility problems, but have been working with physical therapy up until the time of her distal fibula fracture, mobility impaired at that time due to pain. Since then has decreased functional status. Said minimal oral intake due to nausea with the smell of food, and is not even kept down fluids. Has very poor appetite. Has abnormal renal function, was scheduled to see nephrology tomorrow for initial evaluation. In review of records, creatinine has been generally elevated since 2016, for which I have records. Calcium was normal back on July, was elevated and November. Also had elevated TSH in July, which point levothyroxine dose was adjusted. Has history of breast cancer, reached 5-year disease-free point this past summer. Also complains of dry eyes with a feeling of "sand" in her eyes. Has been using eyedrops at home, though it sounds as if those were vasoconstrictor eyedrops. No complaints of dry mouth. - Constitutional Vitals: Vital Signs Temp Pulse Resp BP Pulse Ox 98.7 F 95 H 16 123/65 95 02/23/19 16:00 02/23/19 04:30 02/23/19 16:00 02/23/19 16:00 02/23/19 16:00 Period Temp Pulse Resp BP Sys/Gaspar Pulse Ox Last 24 Hr 97.5 F-98.7 F 73-95 16-24 107-135/53-79 90-95 Intake and Output 02/23/19 02/23/19 02/23/19 05:59 13:59 21:59 Intake Total 200 1650 200 Output Total 1 Balance 199 1650 200 Intake & Output: Intake & Output 02/23/19 02/23/19 02/23/19 05:59 13:59 21:59 Intake Total 200 1650 200 Output Total 1 Balance 199 1650 200 Intake: IV 1410 0 Sodium Chloride 0.9% 1,000 ml @ 1410 0 100 mls/hr IV .Q10H GLADYS Rx#: [id number] Oral 200 240 200 Output: # of times incontinent of urine 1 Other: Meal lemon-lumbee soda Percent of Meal Consumed 75% Exam: General: Sitting up in wheelchair, alert no acute distress Eyes: No icterus, very mild scleral injection, no obvious corneal lesions Chest: Clear to auscultation Cardiovascular: Regular, no edema Abdomen: Nontender Neuro: Generally weak, alert, oriented to person, place and situation. Medical - PN: Obj Da - Labs CBC & Chem 7: 02/23/19 06:17 02/23/19 06:16 Labs: Abnormal Lab Results 02/23/19 02/23/19 02/22/19 06:17 06:16 04:00 WBC Hgb Hct Plt Count MPV 12.7 H Lymph % (Auto) Bryan % (Auto) Gran # Bryan # (Auto) 1.0 H Potassium 3.2 L Chloride Carbon Dioxide Anion Gap BUN 25 H Creatinine 1.3 H Glucose 137 H Calcium 11.1 H Magnesium Alkaline Phosphatase 150 H Lactate Dehydrogenase Total Protein 5.4 L Albumin 2.9 L Albumin/Globulin Ratio TSH Free T4 3.24 H Urine Protein Urine Glucose (UA) Urine Ketones Urine Urobilinogen Urine RBC Ur Squamous Epith Cells Calcium Oxalate Crystal Amorphous Crystals Hyaline Casts 02/22/19 02/22/19 02/21/19 04:00 04:00 20:25 WBC 11.6 H Hgb Hct Plt Count MPV 12.7 H Lymph % (Auto) 15.1 L Bryan % (Auto) 13.4 H Gran # 8.2 H Bryan # (Auto) 1.6 H Potassium Chloride Carbon Dioxide 19 L Anion Gap 21.0 H BUN 31 H Creatinine 1.5 H Glucose 159 H Calcium 11.4 H Magnesium 1.4 L Alkaline Phosphatase 165 H Lactate Dehydrogenase 259 H Total Protein Albumin 2.7 L Albumin/Globulin Ratio 0.8 L TSH Free T4 Urine Protein 100 A Urine Glucose (UA) 50 A Urine Ketones 5/tr A Urine Urobilinogen 4.0 A Urine RBC 6 H Ur Squamous Epith Cells 5 H Calcium Oxalate Crystal Few A Amorphous Crystals Few A Hyaline Casts 72 H 02/21/19 02/21/19 02/21/19 19:41 19:41 19:41 WBC Hgb 15.5 H Hct 48.7 H Plt Count 136 L MPV 13.7 H Lymph % (Auto) 15.4 L Bryan % (Auto) Gran # Bryan # (Auto) Potassium Chloride 93 L Carbon Dioxide 20 L Anion Gap 22.0 H BUN 28 H Creatinine 1.5 H Glucose 181 H Calcium 12.8 H Magnesium Alkaline Phosphatase 189 H Lactate Dehydrogenase Total Protein Albumin Albumin/Globulin Ratio TSH 0.02 L Free T4 Urine Protein Urine Glucose (UA) Urine Ketones Urine Urobilinogen Urine RBC Ur Squamous Epith Cells Calcium Oxalate Crystal Amorphous Crystals Hyaline Casts Meds: Medications Acetaminophen (Tylenol) 650 mg PO Q6HP PRN PRN Reason: PAIN/FEVER > 101 Albuterol/Ipratropium (Duoneb) 3 ml NEB Q4HP PRN PRN Reason: Shortness Of Breath Allopurinol (Zylopriim) 300 mg PO QDAY [facility] Last Admin: 02/23/19 09:35 Dose: 300 mg Documented by: Artificial Tears (Artificial Tears Ophth Drops) 2 gtt OU Q1H PRN PRN Reason: Dry Eye(s) Aspirin (Aspirin) 81 mg PO DAILY [facility] Last Admin: 02/23/19 09:35 Dose: 81 mg Documented by: Dextrose (Dextrose 50%) 0 ml IV UD PRN PRN Reason: Hypoglycemia Dextrose (Dextrose 50%) 0 ml IV UD PRN PRN Reason: Hypoglycemia Diagnostic Test (Pha) (Accu-Chek) 1 each FS ACHS [facility] Last Admin: 02/23/19 11:38 Dose: 1 each Documented by: Docusate Sodium (Colace) 100 mg PO BID [facility] Last Admin: 02/23/19 09:35 Dose: 100 mg Documented by: Enoxaparin Sodium (Lovenox) 40 mg SQ BID [facility] Last Admin: 02/23/19 09:36 Dose: 40 mg Documented by: Glucose (Insta-Glucose) 15 gm PO PRN PRN PRN Reason: Hypoglycemia Glucose (Insta-Glucose) 15 gm PO PRN PRN PRN Reason: Hypoglycemia Potassium Chloride 40 meq/ (Dextrose) 520 mls @ 130 mls/hr IV UD PRN PRN Reason: Potassium < 3 Magnesium Sulfate (Magnesium Sulfate) 2 gm in 50 mls @ 50 mls/hr IV UD PRN PRN Reason: Magnesium </= 1.6 Sodium Chloride (Sodium Chloride 0.9%) 1,000 mls @ 100 mls/hr IV .Q10H [facility] Last Infusion: 02/23/19 15:25 Dose: 100 mls/hr Documented by: Insulin Glargine (Lantus) 30 unit SQ DAILY [facility] Last Admin: 02/23/19 09:35 Dose: 30 units Documented by: Insulin Human Lispro (Humalog) 0 unit SQ ACHS [facility]; Protocol Last Admin: 02/23/19 11:42 Dose: Not Given Documented by: Lisinopril (Zestril) 10 mg PO QDAY [facility] Last Admin: 02/23/19 09:35 Dose: 10 mg Documented by: Ondansetron HCl (Zofran) 4 mg IV Q4HP PRN PRN Reason: Nausea And Vomiting Ondansetron HCl (Zofran) 4 mg IV Q4HP PRN PRN Reason: Nausea And Vomiting Polyethylene Glycol (Miralax) 17 gm PO DAILYP PRN PRN Reason: Constipation Potassium Chloride (Kdur) 40 meq PO UD PRN PRN Reason: Potssium is 3-3.5 Potassium Chloride (Kdur) 40 meq PO UD PRN PRN Reason: Potassium < 3 Senna (Senokot) 2 tab PO DAILYP PRN PRN Reason: Constipation Sodium Chloride (Saline Flush) 10 ml IV Q8 [facility] Last Admin: 02/23/19 15:32 Dose: Not Given Documented by: Medical - PN: A/P - Time Spent With Patient Total time spent is greater than 50% in coordination of care (as documented) at patient's floor/unit and/or counseling patient: Greater than 35 minutes - Narrative A/P Narrative: *Generalized weakness/malaise/poor appetite/increasing weakness: Concerning for symptomatic hypercalcemia -PT, dietary consult, treat hypercalcemia *Hypercalcemia: Patient's hypercalcemia has started since July. -May be related to CKD -Notation of history of hyperparathyroidism in chart. -Differential also includes myeloma given kidney disease as well as recurrent breast cancer -With history of dry eyes, consider sarcoid though not supported by chest radiograph *Dry eyes: Onset over the last 1 to 2 weeks with decreased oral intake. May be secondary to dehydration. No other symptoms to suggest Sjogren's syndrome *h/o Hypothyroidism: on Levothyroxine 150mcg, with evidence of over replacement. May be contributing to her symptoms as well -TSH 0.02 and Free T4 3.24 *Volume Depletion: *CKD III: Was due to see nephrology for evaluation on 02/24 *Nausea/poor appetite: May be related to hypercalcemia, will monitor for now *Hypomagnesemia: *DM: *Morbid Obesity *Recent Left foot fx: P: -Inpatient status from time of admission -Continue IV hydration -Monitor calcium -Send parathyroid hormone, parathyroid related peptide, SPEP, UPEP -Renal ultrasound and spot urinary protein/creatinine -Artificial tears hourly as needed -Other electrolyte replacement as needed -Wound care -Basal & SSI -Levothyroxine held -Dietary consult -pt/ot -CM for placment -ppx: Lovenox full code Medical - PN: Qual - VTE Deep Vein Thrombosis/Pulmonary Embolism Present on Admission: No
[2019-02-23] MEDS: POLYVINYL ALCOHOL OPHTH DROPS 15ML BOTTLE OU PRN (17:11)
[2019-02-23 18:29] LABS: Total Protein PEP 5.6 gm/dL (5.9-8.4)
[2019-02-23 18:33] LABS: Parathyroid Hormone Intact-SO 31.5 pg/ml (15-65)
[2019-02-24] MEDS: POLYVINYL ALCOHOL OPHTH DROPS 15ML BOTTLE OU PRN (02:08)
[2019-02-24] MEDS: 0.9 % SODIUM CHLORIDE 10 ML SYRINGE IV SCH ×3 (05:03→21:17)
[2019-02-24 05:39] LABS: Basophils # (Auto) 0 K/mcL (0.0-0.3); Basophils % (Auto) 0.2 % (0.0-2.0); Eosinophils # (Auto) 0.2 K/mcL (0.0-0.7); Eosinophils % (Auto) 2.1 % (0.0-7.0); Granulocytes % (Auto) 62.6 % (38.0-78.0); Hematocrit 36.1 % (36.0-48.0); Hemoglobin 11.7 g/dL (12.0-15.0); Lymphocytes # (Auto) 1.7 K/mcL (1.5-4.8); Lymphocytes % (Auto) 22.8 % (15.5-49.0); Mean Cell Volume 94.3 fL (80.0-100.0); Mean Corpuscular HGB Conc 32.4 g/dL (31.0-36.0); Mean Platelet Volume 12.6 fL (7.4-10.4); Monocytes # (Auto) 0.9 K/mcL (0.1-0.9); Monocytes % (Auto) 12.3 % (1.0-12.0); Platelet Count 143 K/mcL (140-440); RBC 3.82 M/mcL (4.00-5.20); WBC 7.7 K/mcL (4.5-11.0)
[2019-02-24 06:07] LABS: ALT/SGPT 6 U/l (0-40); AST/SGOT 12 U/l (0-37); Albumin 2.9 gm/dL (3.2-5.2); Albumin/Globulin Ratio 1.2 (1.0-2.3); Alkaline Phosphatase 139 U/L (39-117); Bilirubin,Direct < 0.2 mg/dL (0.0-0.3); Bilirubin,Total 0.3 mg/dL (0.0-1.0); Blood Urea Nitrogen 21 mg/dl (8-23); Calcium 11.2 mg/dl (8.6-10.4); Carbon Dioxide 23 mmol/L (22-30); Chloride 105 mmol/L (96-108); Globulin 2.4 gm/dL (2.2-3.7); Glomerular Filtration Rate 50; Glucose 100 mg/dL (70-105); Lactate Dehydrogenase 171 U/L (94-250); Triglycerides 123 mg/dl (<150); Uric Acid 4.5 mg/dL (2.5-8.0)
[2019-02-24 06:09] LABS: Phosphorous 2.1 mg/dL (2.7-4.5)
[2019-02-24] MEDS: INSULIN LISPRO 1 UNIT/0.01 ML UNIT SQ SCH ×4 (07:35→21:19)
[2019-02-24] MEDS: 0.9 % SODIUM CHLORIDE 1,000 ML IV SCH ×4 (07:37→21:45)
[2019-02-24] MEDS: MAGNESIUM SULFATE 2 GM/50 ML BAG IV PRN (09:10)
[2019-02-24] MEDS: INSULIN GLARGINE, HUMAN 1 UNIT/0.01 ML SQ SCH (09:10)
[2019-02-24] MEDS: ALLOPURINOL 300 MG TABLET PO SCH (09:11)
[2019-02-24] MEDS: ENOXAPARIN 40 MG/0.4 ML SYRINGE SQ SCH ×2 (09:11)
[2019-02-24] MEDS: LISINOPRIL 10 MG TABLET PO SCH (09:11)
[2019-02-24] MEDS: DOCUSATE SODIUM 100 MG CAPSULE PO SCH ×2 (09:11→21:26)
[2019-02-24] MEDS: ASPIRIN 81 MG TAB.CHEW PO SCH (09:11)
[2019-02-24 15:49] LABS: Albumin PEP 2.93 gm/dl (3.1-4.7); Albumin/Globulin Ratio PEP 1.1 (0.9-1.7); Alpha-1-Globulins 0.27 gm/dl (0.1-0.5); Alpha-2-Globulins 0.94 gm/dL (0.4-1.2); Beta Globulins 0.96 gm/dL (0.6-1.2); Gamma Globulins 0.5 gm/dL (0.5-1.7); Globulin PEP 2.7 gm/dl (2.4-3.6)
--- NOTE | 2019-02-24 21:26 | Internal Med Progress Note ---
Medical - PN: Subj Patient information: Note initiated : 02/24/19 at 9:26 pm Service Date, if different from initiated Date: [] Patient: Mel Peacock a 73 y/o F admitted on 02/22/19 for Barely eating, weak. Chief Complaint: Follow-up hypercalcemia Interval history: 02/22 Ms. Peacock is a 73 year old F Presents to the ED with generalized weakness malaise/ poor appetite/ nausea, tachycardia, dyspnea on exertion. Feeling cold all the time. Has itchy eyes. Denies sweats chest pain abdominal pain diarrhea. This is been going on for about 4 weeks, around the time she fractured her left foot. She has a Port-A-Cath for breast cancer last chemotherapy was year ago. Work-up in the ED included CT abdomen pelvis which was unremarkable. Laboratory work revealed including urine and indicative of volume depletion. TSH severely low. CXR unremarkable 02/23 Patient with hypercalcemia at presentation, has been made inpatient status due to combination of hypercalcemia and her symptoms. Interviewed patient along w ith her and daughter at bedside. Patient had mobility problems, but have been working with physical therapy up until the time of her distal fibula fracture, mobility impaired at that time due to pain. Since then has decreased functional status. Said minimal oral intake due to nausea with the smell of food, and is not even kept down fluids. Has very poor appetite. Has abnormal renal function, was scheduled to see nephrology tomorrow for initial evaluation. In review of records, creatinine has been generally elevated since 2016, for which I have records. Calcium was normal back on July, was elevated and November. Also had elevated TSH in July, which point levothyroxine dose was adjusted. Has history of breast cancer, reached 5-year disease-free point this past summer. Also complains of dry eyes with a feeling of "sand" in her eyes. Has been using eyedrops at home, though it sounds as if those were vasoconstrictor eyedrops. No complaints of dry mouth. 02/24 Patient has taken some p.o., states that she gets full early. Seems to do better with liquids. She related to dietary that she had lost 50 pounds in about the last year, and she is afraid of gaining the weight back. Unclear if this is contributing to her decreased oral intake. Getting little stronger, he lping more with transfers from bed to commode. Eyes are still bothering her, artificial tears may be helping a little bit. - Constitutional Vitals: Vital Signs Temp Pulse Resp BP Pulse Ox 98.3 F 72 20 128/80 93 02/24/19 19:00 02/24/19 19:00 02/24/19 19:00 02/24/19 19:00 02/24/19 19:00 Period Temp Pulse Resp BP Sys/Gaspar Pulse Ox Last 24 Hr 97.4 F-98.3 F 66-76 16-24 112-136/53-80 84-96 Intake and Output 02/24/19 02/24/19 02/24/19 05:59 13:59 21:59 Intake Total 1000 1525 Output Total 1 2 Balance -1 1000 1523 Weight 304 lb 8 oz 310 lb 8 oz Patient Weight 02/25/19 05:59 Weight 310 lb 8 oz Intake & Output: Intake & Output 02/24/19 02/24/19 02/24/19 05:59 13:59 21:59 Intake Total 1000 1525 Output Total 1 2 Balance -1 1000 1523 Weight 304 lb 8 oz 310 lb 8 oz Intake: IV 1000 1000 Sodium Chloride 0.9% 1,000 ml @ 1000 1000 100 mls/hr IV .Q10H [facility] Rx#: [id number] Oral 525 Output: Void Amount 0 # of times incontinent of urine 1 2 Other: Meal Lunch Percent of Meal Consumed 0% Feeding Ability Assist with Tray Set Up Urine Appearance Clear Urine Color Dark Yellow Exam: General: Laying in bed, appears chronically ill Chest: Clear anterior laterally at the bases Cardiovascular: Regular Abdomen: Obese, soft Neuro: Generally weak, alert, oriented to person, place and situation. Medical - PN: Obj Da - Labs CBC & Chem 7: 02/24/19 04:00 02/24/19 04:00 Labs: Abnormal Lab Results 02/24/19 02/24/19 02/23/19 04:00 04:00 16:00 WBC RBC 3.82 L Hgb 11.7 L MPV 12.6 H Lymph % (Auto) Garrard % (Auto) 12.3 H Gran # Garrard # (Auto) Potassium Carbon Dioxide Anion Gap BUN Creatinine Glucose Calcium 11.2 H Phosphorus 2.1 L Magnesium Alkaline Phosphatase 139 H Lactate Dehydrogenase Total Protein 5.3 L Total Protein (PEP) 5.6 L Albumin 2.9 L Albumin (PEP) 2.93 L Albumin/Globulin Ratio TSH Free T4 Urine Protein Urine Glucose (UA) Urine Ketones Urine Urobilinogen Urine RBC Ur Squamous Epith Cells Calcium Oxalate Crystal Amorphous Crystals Hyaline Casts 02/23/19 02/23/19 02/22/19 06:17 06:16 04:00 WBC RBC Hgb MPV 12.7 H Lymph % (Auto) Garrard % (Auto) Gran # Garrard # (Auto) 1.0 H Potassium 3.2 L Carbon Dioxide Anion Gap BUN 25 H Creatinine 1.3 H Glucose 137 H Calcium 11.1 H Phosphorus Magnesium Alkaline Phosphatase 150 H Lactate Dehydrogenase Total Protein 5.4 L Total Protein (PEP) Albumin 2.9 L Albumin (PEP) Albumin/Globulin Ratio TSH Free T4 3.24 H Urine Protein Urine Glucose (UA) Urine Ketones Urine Urobilinogen Urine RBC Ur Squamous Epith Cells Calcium Oxalate Crystal Amorphous Crystals Hyaline Casts 02/22/19 02/22/19 02/21/19 04:00 04:00 20:25 WBC 11.6 H RBC Hgb MPV 12.7 H Lymph % (Auto) 15.1 L Garrard % (Auto) 13.4 H Gran # 8.2 H Garrard # (Auto) 1.6 H Potassium Carbon Dioxide 19 L Anion Gap 21.0 H BUN 31 H Creatinine 1.5 H Glucose 159 H Calcium 11.4 H Phosphorus Magnesium 1.4 L Alkaline Phosphatase 165 H Lactate Dehydrogenase 259 H Total Protein Total Protein (PEP) Albumin 2.7 L Albumin (PEP) Albumin/Globulin Ratio 0.8 L TSH Free T4 Urine Protein 100 A Urine Glucose (UA) 50 A Urine Ketones 5/tr A Urine Urobilinogen 4.0 A Urine RBC 6 H Ur Squamous Epith Cells 5 H Calcium Oxalate Crystal Few A Amorphous Crystals Few A Hyaline Casts 72 H 02/21/19 19:41 WBC RBC Hgb MPV Lymph % (Auto) Garrard % (Auto) Gran # Garrard # (Auto) Potassium Carbon Dioxide Anion Gap BUN Creatinine Glucose Calcium Phosphorus Magnesium Alkaline Phosphatase Lactate Dehydrogenase Total Protein Total Protein (PEP) Albumin Albumin (PEP) Albumin/Globulin Ratio TSH 0.02 L Free T4 Urine Protein Urine Glucose (UA) Urine Ketones Urine Urobilinogen Urine RBC Ur Squamous Epith Cells Calcium Oxalate Crystal Amorphous Crystals Hyaline Casts Meds: Medications Acetaminophen (Tylenol) 650 mg PO Q6HP PRN PRN Reason: PAIN/FEVER > 101 Albuterol/Ipratropium (Duoneb) 3 ml NEB Q4HP PRN PRN Reason: Shortness Of Breath Allopurinol (Zylopriim) 300 mg PO QDAY [facility] Last Admin: 02/24/19 09:11 Dose: 300 mg Documented by: Artificial Tears (Artificial Tears Ophth Drops) 2 gtt OU Q1H PRN PRN Reason: Dry Eye(s) Last Admin: 02/24/19 02:08 Dose: 2 gtt Documented by: Aspirin (Aspirin) 81 mg PO DAILY [facility] Last Admin: 02/24/19 09:11 Dose: 81 mg Documented by: Dextrose (Dextrose 50%) 0 ml IV UD PRN PRN Reason: Hypoglycemia Dextrose (Dextrose 50%) 0 ml IV UD PRN PRN Reason: Hypoglycemia Diagnostic Test (Pha) (Accu-Chek) 1 each FS ACHS [facility] Last Admin: 02/24/19 21:19 Dose: 1 each Documented by: Docusate Sodium (Colace) 100 mg PO BID [facility] Last Admin: 02/24/19 09:11 Dose: 100 mg Documented by: Enoxaparin Sodium (Lovenox) 40 mg SQ DAILY [facility] Last Admin: 02/24/19 09:11 Dose: 40 mg Documented by: Glucose (Insta-Glucose) 15 gm PO PRN PRN PRN Reason: Hypoglycemia Glucose (Insta-Glucose) 15 gm PO PRN PRN PRN Reason: Hypoglycemia Potassium Chloride 40 meq/ (Dextrose) 520 mls @ 130 mls/hr IV UD PRN PRN Reason: Potassium < 3 Magnesium Sulfate (Magnesium Sulfate) 2 gm in 50 mls @ 50 mls/hr IV UD PRN PRN Reason: Magnesium </= 1.6 Last Admin: 02/24/19 09:10 Dose: 50 mls/hr Documented by: Sodium Chloride (Sodium Chloride 0.9%) 1,000 mls @ 100 mls/hr IV .Q10H [facility] Last Admin: 02/24/19 19:05 Dose: 100 mls/hr Documented by: Insulin Glargine (Lantus) 30 unit SQ DAILY [facility] Last Admin: 02/24/19 09:10 Dose: 30 units Documented by: Insulin Human Lispro (Humalog) 0 unit SQ ACHS [facility]; Protocol Last Admin: 02/24/19 21:19 Dose: Not Given Documented by: Lisinopril (Zestril) 10 mg PO QDAY [facility] Last Admin: 02/24/19 09:11 Dose: 10 mg Documented by: Ondansetron HCl (Zofran) 4 mg IV Q4HP PRN PRN Reason: Nausea And Vomiting Ondansetron HCl (Zofran) 4 mg IV Q4HP PRN PRN Reason: Nausea And Vomiting Polyethylene Glycol (Miralax) 17 gm PO DAILYP PRN PRN Reason: Constipation Potassium Chloride (Kdur) 40 meq PO UD PRN PRN Reason: Potssium is 3-3.5 Potassium Chloride (Kdur) 40 meq PO UD PRN PRN Reason: Potassium < 3 Senna (Senokot) 2 tab PO DAILYP PRN PRN Reason: Constipation Sodium Chloride (Saline Flush) 10 ml IV Q8 [facility] Last Admin: 02/24/19 21:17 Dose: Not Given Documented by: Medical - PN: A/P - Time Spent With Patient Total time spent is greater than 50% in coordination of care (as documented) at patient's floor/unit and/or counseling patient: 25 - 35 minutes - Narrative A/P Narrative: *Generalized weakness/malaise/poor appetite/increasing weakness: Concerning for symptomatic hypercalcemia -PT, dietary consult, treat hypercalcemia *Hypercalcemia: Patient's hypercalcemia has started since July. -May be related to CKD -Notation of history of hyperparathyroidism in chart; parathyroid hormone in the normal range -Differential also includes myeloma given kidney disease (SPEP with hypoalbuminemia only) as well as recurrent breast cancer -With history of dry eyes, consider sarcoid though not supported by chest radiograph *Dry eyes: Onset over the last 1 to 2 weeks with decreased oral intake. May be secondary to dehydration. No other symptoms to suggest Sjogren's syndrome *h/o Hypothyroidism: on Levothyroxine 150mcg, with evidence of over replacement. May be contributing to her symptoms as well -TSH 0.02 and Free T4 3.24 *Volume Depletion: *CKD III: Was due to see nephrology for evaluation on 02/24 *Nausea/poor appetite: May be related to hypercalcemia, will monitor for now *Hypomagnesemia: *DM: *Morbid Obesity *Recent Left foot fx: P: -Continue IV hydration -Monitor calcium -F/U parathyroid related peptide, UPEP -Artificial tears hourly as needed -Other electrolyte replacement as needed -Wound care -Basal & SSI -Levothyroxine held -Dietary consult -pt/ot -CM for placment -ppx: Lovenox full code Medical - PN: Qual - VTE Deep Vein Thrombosis/Pulmonary Embolism Present on Admission: No
[2019-02-25] MEDS: 0.9 % SODIUM CHLORIDE 10 ML SYRINGE IV SCH ×3 (04:06→20:10)
[2019-02-25] MEDS: 0.9 % SODIUM CHLORIDE 1,000 ML IV SCH ×2 (04:12→15:46)
[2019-02-25 06:56] LABS: Bilirubin,Direct < 0.2 mg/dL (0.0-0.3)
[2019-02-25 06:57] LABS: ALT/SGPT 6 U/l (0-40); AST/SGOT 12 U/l (0-37); Albumin 2.4 gm/dL (3.2-5.2); Albumin/Globulin Ratio 0.9 (1.0-2.3); Alkaline Phosphatase 134 U/L (39-117); Bilirubin,Total 0.3 mg/dL (0.0-1.0); Blood Urea Nitrogen 15 mg/dl (8-23); Carbon Dioxide 21 mmol/L (22-30); Chloride 109 mmol/L (96-108); Globulin 2.6 gm/dL (2.2-3.7); Glomerular Filtration Rate 56; Glucose 68 mg/dL (70-105); Lactate Dehydrogenase 211 U/L (94-250); Phosphorous 2.2 mg/dL (2.7-4.5); Triglycerides 93 mg/dl (<150); Uric Acid 4.1 mg/dL (2.5-8.0)
[2019-02-25] MEDS: INSULIN LISPRO 1 UNIT/0.01 ML UNIT SQ SCH ×4 (09:22→20:10)
[2019-02-25] MEDS: INSULIN GLARGINE, HUMAN 1 UNIT/0.01 ML SQ SCH (09:23)
[2019-02-25] MEDS: LISINOPRIL 10 MG TABLET PO SCH (09:23)
[2019-02-25] MEDS: DOCUSATE SODIUM 100 MG CAPSULE PO SCH ×2 (09:23→20:03)
[2019-02-25] MEDS: ENOXAPARIN 40 MG/0.4 ML SYRINGE SQ SCH (09:24)
[2019-02-25] MEDS: ASPIRIN 81 MG TAB.CHEW PO SCH (09:24)
[2019-02-25] MEDS: ALLOPURINOL 300 MG TABLET PO SCH (09:24)
--- NOTE | 2019-02-25 17:31 | Internal Med Progress Note ---
Medical - PN: Subj Patient information: Note initiated : 02/25/19 at 5:29 pm Service Date, if different from initiated Date: [] Patient: Mel Peacock a 73 y/o F admitted on 02/22/19 for Barely eating, weak. Chief Complaint: Follow-up weakness, hypercalcemia Interval history: 02/22 Ms. Peacokc is a 73 year old F Presents to the ED with generalized weakness malaise/ poor appetite/ nausea, tachycardia, dyspnea on exertion. Feeling cold all the time. Has itchy eyes. Denies sweats chest pain abdominal pain diarrhea. This is been going on for about 4 weeks, around the time she fractured her left foot. She has a Port-A-Cath for breast cancer last chemotherapy was year ago. Work-up in the ED included CT abdomen pelvis which was unremarkable. Laboratory work revealed including urine and indicative of volume depletion. TSH severely low. CXR unremarkable 02/23 Patient with hypercalcemia at presentation, has been made inpatient status due to combination of hypercalcemia and her symptoms. Interviewed patient along with her and daughter at bedside. Patient had mobility problems, but have been working with physical therapy up until the time of her distal fibula fracture, mobility impaired at that time due to pain. Since then has decreased functional status. Said minimal oral intake due to nausea with the smell of food, and is not even kept down fluids. Has very poor appetite. Has abnormal renal function, was scheduled to see nephrology tomorrow for initial evaluation. In review of records, creatinine has been generally elevated since 2016, for which I have records. Calcium was normal back on July, was elevated and November. Also had elevated TSH in July, which point levothyroxine dose was adjusted. Has history of breast cancer, reached 5-year disease-free point this past summer. Also complains of dry eyes with a feeling of "sand" in her eyes. Has been using eyedrops at home, though it sounds as if those were vasoconstrictor eyedrops. No complaints of dry mouth. 02/24 Patient has taken some p.o., states that she gets full early. Seems to do better with liquids. She related to dietary that she had lost 50 pounds in about the last year, and she is afraid of gaining the weight back. Unclear if this is contributing to her decreased oral intake. Getting little stronger, helping more with transfers from bed to commode. Eyes are still bothering her, artificial tears may be helping a little bit. 02/25 More active and feeling better today, continues to be more mobile, though still needing assist with transfers. Appetite is still poor. Trying to focus on liq uids and supplements. Eyes are significantly improved. - Constitutional Vitals: Vital Signs Temp Pulse Resp BP Pulse Ox 97.5 F 68 18 130/77 94 02/25/19 12:00 02/25/19 12:00 02/25/19 12:00 02/25/19 12:00 02/25/19 12:00 Period Temp Pulse Resp BP Sys/Gaspar Pulse Ox Last 24 Hr 97.5 F-98.3 F 68-94 18-20 128-139/76-87 93-95 Intake and Output 02/25/19 02/25/19 02/25/19 05:59 13:59 21:59 Intake Total 8316 953 6104 Output Total 226 151 Balance 2200 677 2181 Intake & Output: Intake & Output 02/25/19 02/25/19 02/25/19 05:59 13:59 21:59 Intake Total 8905 815 3339 Output Total 226 151 Balance 5751 808 5913 Intake: IV 912 1000 Sodium Chloride 0.9% 1,000 ml @ 912 1000 100 mls/hr IV .Q10H [facility] Rx#: [id number] Oral 100 360 540 Output: Void Amount 225 150 # of times incontinent of urine 1 1 Other: Percent of Meal Consumed 0% Urine Appearance Clear Clear Urine Color Bright Yellow Dark Yellow # Voids 1 Exam: General: Laying in bed, more engaged, more talkative Chest: Clear, no rales Cardiovascular: Regular, ankles thick, edema difficult to assess Abdomen: Obese, soft, no tenderness Neuro: Alert, oriented to person, place, situation, mood seems improved. Still with generalized weakness. Medical - PN: Obj Da - Labs CBC & Chem 7: 02/24/19 04:00 02/25/19 04:33 Labs: Abnormal Lab Results 02/25/19 02/24/19 02/24/19 04:33 04:00 04:00 RBC 3.82 L Hgb 11.7 L MPV 12.6 H Thayer % (Auto) 12.3 H Thayer # (Auto) Potassium Chloride 109 H Carbon Dioxide 21 L BUN Creatinine Glucose 68 L Calcium 11.0 H 11.2 H Phosphorus 2.2 L 2.1 L Alkaline Phosphatase 134 H 139 H Total Protein 5.0 L 5.3 L Total Protein (PEP) Albumin 2.4 L 2.9 L Albumin (PEP) Albumin/Globulin Ratio 0.9 L 02/23/19 02/23/19 02/23/19 16:00 06:17 06:16 RBC Hgb MPV 12.7 H Thayer % (Auto) Thayer # (Auto) 1.0 H Potassium 3.2 L Chloride Carbon Dioxide BUN 25 H Creatinine 1.3 H Glucose 137 H Calcium 11.1 H Phosphorus Alkaline Phosphatase 150 H Total Protein 5.4 L Total Protein (PEP) 5.6 L Albumin 2.9 L Albumin (PEP) 2.93 L Albumin/Globulin Ratio Meds: Medications Acetaminophen (Tylenol) 650 mg PO Q6HP PRN PRN Reason: PAIN/FEVER > 101 Albuterol/Ipratropium (Duoneb) 3 ml NEB Q4HP PRN PRN Reason: Shortness Of Breath Allopurinol (Zylopriim) 300 mg PO QDAY [facility] Last Admin: 02/25/19 09:24 Dose: 300 mg Documented by: Artificial Tears (Artificial Tears Ophth Drops) 2 gtt OU Q1H PRN PRN Reason: Dry Eye(s) Last Admin: 02/24/19 02:08 Dose: 2 gtt Documented by: Aspirin (Aspirin) 81 mg PO DAILY [facility] Last Admin: 02/25/19 09:24 Dose: 81 mg Documented by: Dextrose (Dextrose 50%) 0 ml IV UD PRN PRN Reason: Hypoglycemia Dextrose (Dextrose 50%) 0 ml IV UD PRN PRN Reason: Hypoglycemia Diagnostic Test (Pha) (Accu-Chek) 1 each FS ACHS [facility] Last Admin: 02/25/19 17:22 Dose: 1 each Documented by: Docusate Sodium (Colace) 100 mg PO BID [facility] Last Admin: 02/25/19 09:23 Dose: 100 mg Documented by: Enoxaparin Sodium (Lovenox) 40 mg SQ DAILY [facility] Last Admin: 02/25/19 09:24 Dose: 40 mg Documented by: Glucose (Insta-Glucose) 15 gm PO PRN PRN PRN Reason: Hypoglycemia Glucose (Insta-Glucose) 15 gm PO PRN PRN PRN Reason: Hypoglycemia Potassium Chloride 40 meq/ (Dextrose) 520 mls @ 130 mls/hr IV UD PRN PRN Reason: Potassium < 3 Magnesium Sulfate (Magnesium Sulfate) 2 gm in 50 mls @ 50 mls/hr IV UD PRN PRN Reason: Magnesium </= 1.6 Last Admin: 02/24/19 09:10 Dose: 50 mls/hr Documented by: Insulin Glargine (Lantus) 30 unit SQ DAILY [facility] Last Admin: 02/25/19 09:23 Dose: 30 units Documented by: Insulin Human Lispro (Humalog) 0 unit SQ ACHS [facility]; Protocol Last Admin: 02/25/19 17:22 Dose: Not Given Documented by: Lisinopril (Zestril) 10 mg PO QDAY [facility] Last Admin: 02/25/19 09:23 Dose: 10 mg Documented by: Ondansetron HCl (Zofran) 4 mg IV Q4HP PRN PRN Reason: Nausea And Vomiting Ondansetron HCl (Zofran) 4 mg IV Q4HP PRN PRN Reason: Nausea And Vomiting Polyethylene Glycol (Miralax) 17 gm PO DAILYP PRN PRN Reason: Constipation Potassium Chloride (Kdur) 40 meq PO UD PRN PRN Reason: Potssium is 3-3.5 Potassium Chloride (Kdur) 40 meq PO UD PRN PRN Reason: Potassium < 3 Senna (Senokot) 2 tab PO DAILYP PRN PRN Reason: Constipation Sodium Chloride (Saline Flush) 10 ml IV Q8 [facility] Last Admin: 02/25/19 17:21 Dose: Not Given Documented by: Medical - PN: A/P - Time Spent With Patient Total time spent is greater than 50% in coordination of care (as documented) at patient's floor/unit and/or counseling patient: 25 - 35 minutes - Narrative A/P Narrative: *Generalized weakness/malaise/poor appetite/increasing weakness: Concerning for symptomatic hypercalcemia vs. apathetic hyperthyroidism -PT, dietary consult, treat hypercalcemia *Hypercalcemia: Patient's hypercalcemia has started since July. -May be related to CKD -Notation of history of hyperparathyroidism in chart; parathyroid hormone in the normal range; PTHrp pending -Differential also includes myeloma given kidney disease (SPEP with hypoalbuminemia only) as well as recurrent breast cancer -With history of dry eyes, consider sarcoid though not supported by chest radiograph *Dry eyes: Onset over the last 1 to 2 weeks with decreased oral intake. Improving. -May be secondary to dehydration. -No other symptoms to suggest Sjogren's syndrome. *h/o Hypothyroidism: on Levothyroxine 150mcg, with evidence of over replacement. May be contributing to her symptoms as well -TSH 0.02 and Free T4 3.24 *Volume Depletion: Improving *CKD III: Was due to see nephrology for evaluation on 02/24 *Nausea/poor appetite: May be related to hypercalcemia, will monitor for now *Hypomagnesemia: *DM: *Morbid Obesity *Recent Left foot fx: P: -Change to 0.45% NS and decrease hydration rate -Monitor calcium -F/U parathyroid related peptide, UPEP -Continue artificial tears hourly as needed -Other electrolyte replacement as needed -Continue PT and OT -Wound care -Basal & SSI -Levothyroxine held -Dietary consult -Consider Remeron for appetite and mood -CM for placment -ppx: Lovenox full code Medical - PN: Qual - VTE Deep Vein Thrombosis/Pulmonary Embolism Present on Admission: No
[2019-02-25] MEDS: 0.45 % SODIUM CHLORIDE 1,000 ML IV SCH (19:49)
[2019-02-25] MEDS: MIRTAZAPINE 15 MG TABLET PO SCH (20:03)
[2019-02-25] MEDS: POLYETHYLENE GLYCOL 3350 17 GM PACKET PO PRN (20:03)
[2019-02-26] MEDS: 0.9 % SODIUM CHLORIDE 10 ML SYRINGE IV SCH ×3 (04:21→21:58)
[2019-02-26 06:42] LABS: ALT/SGPT 6 U/l (0-40); AST/SGOT 11 U/l (0-37); Albumin 2.7 gm/dL (3.2-5.2); Albumin/Globulin Ratio 1.2 (1.0-2.3); Alkaline Phosphatase 137 U/L (39-117); Bilirubin,Direct < 0.2 mg/dL (0.0-0.3); Bilirubin,Total 0.3 mg/dL (0.0-1.0); Blood Urea Nitrogen 11 mg/dl (8-23); Calcium 10.5 mg/dl (8.6-10.4); Carbon Dioxide 24 mmol/L (22-30); Chloride 108 mmol/L (96-108); Globulin 2.3 gm/dL (2.2-3.7); Glomerular Filtration Rate 73; Glucose 109 mg/dL (70-105); Lactate Dehydrogenase 169 U/L (94-250); Triglycerides 123 mg/dl (<150); Uric Acid 3.6 mg/dL (2.5-8.0)
[2019-02-26 06:58] LABS: Phosphorous 2.1 mg/dL (2.7-4.5)
[2019-02-26] MEDS: INSULIN LISPRO 1 UNIT/0.01 ML UNIT SQ SCH ×4 (07:39→21:55)
[2019-02-26] MEDS ORDERED: POTASSIUM CHLORIDE 40 MEQ in DEXTROSE 5% IN WATER 500 ML IV ONE (08:10)
[2019-02-26] MEDS: MAGNESIUM SULFATE 2 GM/50 ML BAG IV PRN (08:10)
[2019-02-26] MEDS: 0.45 % SODIUM CHLORIDE 1,000 ML IV SCH (11:11)
[2019-02-26] MEDS: DOCUSATE SODIUM 100 MG CAPSULE PO SCH ×2 (11:12→21:54)
[2019-02-26] MEDS: ENOXAPARIN 40 MG/0.4 ML SYRINGE SQ SCH (11:12)
[2019-02-26] MEDS: ASPIRIN 81 MG TAB.CHEW PO SCH (11:12)
[2019-02-26] MEDS: ALLOPURINOL 300 MG TABLET PO SCH (11:12)
[2019-02-26] MEDS: INSULIN GLARGINE, HUMAN 1 UNIT/0.01 ML SQ SCH (12:08)
[2019-02-26] MEDS: LISINOPRIL 10 MG TABLET PO SCH (12:15)
[2019-02-26] MEDS ORDERED: traMADol 50 MG TABLET PO PRN (13:15)
--- NOTE | 2019-02-26 18:17 | XRay Report ---
CLINICAL INFORMATION: Follow-up Ny B distal fibular fracture COMPARISON: 01/29/2019 FINDINGS: The fracture line is more evident on today's film following osseous resorption. There is actually a minimally displaced spiral fracture of the distal fibula diaphysis extending to the metadiaphysis. Distal fibular fragment is displaced 2 mm laterally. Today's examination, there is now moderate osteolysis of the posterior malleolus cortical and subcortical bone. No fracture identified. Previously, this region was unremarkable radiographically. The ankle mortise, talocalcaneal joint and midfoot joints are normal in width and alignment. Marked diffuse soft tissue swelling has worsened considerably from exam one month ago. IMPRESSION: 1. Minimally displaced spiral fracture of the distal fibular diaphysis/metadiaphysis. Fracture line is more evident on today's film following osseous resorption. No evidence of healing callus 2. 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 This is a new radiographic finding from the plain film less than one month ago. There is also marked periarticular soft tissue swelling which has increased. The possibility of cellulitis and osteomyelitis should be entertained. Suggest: Ankle MRI Interpreted and Authenticated by: Lm Hummel 02/26/19
[2019-02-26] MEDS ORDERED: LEVOTHYROXINE 50 MCG TABLET PO ONE (18:57)
--- NOTE | 2019-02-26 19:00 | Internal Med Progress Note ---
Medical - PN: Subj Patient information: Note initiated : 02/26/19 at 6:57 pm Service Date, if different from initiated Date: [] Patient: Mel Peacock a 73 y/o F admitted on 02/22/19 for Barely eating, weak. Chief Complaint: [] Interval history: 02/22 Ms. Peacock is a 73 year old F Presents to the ED with generalized weakness malaise/ poor appetite/ nausea, tachycardia, dyspnea on exertion. Feeling cold all the time. Has itchy eyes. Denies sweats chest pain abdominal pain diarrhea. This is been going on for ab out 4 weeks, around the time she fractured her left foot. She has a Port-A-Cath for breast cancer last chemotherapy was year ago. Work-up in the ED included CT abdomen pelvis which was unremarkable. Laboratory work revealed including urine and indicative of volume depletion. TSH severely low. CXR unremarkable 02/23 Patient with hypercalcemia at presentation, has been made inpatient status due to combination of hypercalcemia and her symptoms. Interviewed patient along with her and daughter at bedside. Patient had mobility problems, but have been working with physical therapy up until the time of her distal fibula fracture, mobility impaired at that time due to pain. Since then has decreased functional status. Said minimal oral intake due to nausea with the smell of food, and is not even kept down fluids. Has very poor appetite. Has abnormal renal function, was scheduled to see nephrology tomorrow for initial evaluation. In review of records, creatinine has been generally elevated since 2016, for which I have records. Calcium was normal back on July, was elevated and November. Also had elevated TSH in July, which point levothyroxine dose was adjusted. Has history of breast cancer, reached 5-year disease-free point this past summer. Also complains of dry eyes with a feeling of "sand" in her eyes. Has been using eyedrops at home, though it sounds as if those were vasoconstrictor eyedrops. No complaints of dry mouth. 02/24 Patient has taken some p.o., states that she gets full early. Seems to do better with liquids. She related to dietary that she had lost 50 pounds in about the last year, and she is afraid of gaining the weight back. Unclear if this is contributing to her decreased oral intake. Getting little stronger, helping more with transfers from bed to commode. Eyes are still bothering her, artificial tears may be helping a little bit. 02/25 More active and feeling better today, continues to be more mobile, though still needing assist with transfers. Appetite is still poor. Trying to focus on liquids and supplements. Eyes are significantly improved. 02/26/2019 Continues to slowly progress. 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 Discussed with her daughter at bedside, calcium continues to slowly normalize. Have encouraged them that at this point she is stable for discharge, they will need to choose a skilled facility. Reiterated to the patient that I feel going to skilled facility to further regain function would be in her best interest. - Constitutional Vitals: Vital Signs Temp Pulse Resp BP Pulse Ox 98.1 F 93 H 22 134/86 95 02/26/19 16:00 02/26/19 16:00 02/26/19 12:00 02/26/19 16:00 02/26/19 16:00 Period Temp Pulse Resp BP Sys/Gaspar Pulse Ox Last 24 Hr 96.9 F-98.1 F 66-101 22-24 132-142/74-95 93-95 Intake and Output 02/26/19 02/26/19 02/26/19 05:59 13:59 21:59 Intake Total 1120 1050 880 Output Total 1 1 Balance 1119 1050 879 Intake & Output: Intake & Output 02/26/19 02/26/19 02/26/19 05:59 13:59 21:59 Intake Total 1120 1050 880 Output Total 1 1 Balance 1119 1050 879 Intake: IV 1000 1050 520 Sodium Chloride 0.45% 1,000 ml 1000 @ 75 mls/hr IV .[id number] [facility] Rx# :[id number] Sodium Chloride 0.9% 1,000 ml @ 1000 100 mls/hr IV .Q10H [facility] Rx#: [id number] Potassium Chloride 40 Meq In 520 Dextrose 5% in Water 500 ml @ 130 mls/hr IV UD PRN Rx#: [id number] Oral 120 360 Output: # of times incontinent of urine 1 1 Other: Meal Lunch Percent of Meal Consumed 50% Feeding Ability Independent Exam: General sitting up at bedside Chest: Clear Cardiovascular: Regular Abdomen: Obese, soft Neuro: Alert, oriented to person place and situation, generally weak but improving Medical - PN: Obj Da - Labs CBC & Chem 7: 02/24/19 04:00 02/26/19 04:49 Labs: Abnormal Lab Results 02/26/19 02/25/19 02/24/19 04:49 04:33 04:00 RBC Hgb MPV Ross % (Auto) Potassium 2.9 L* Chloride 109 H Carbon Dioxide 21 L Glucose 109 H 68 L Calcium 10.5 H 11.0 H 11.2 H Phosphorus 2.1 L 2.2 L 2.1 L Magnesium 1.5 L Alkaline Phosphatase 137 H 134 H 139 H Total Protein 5.0 L 5.0 L 5.3 L Albumin 2.7 L 2.4 L 2.9 L Albumin (PEP) Albumin/Globulin Ratio 0.9 L 02/24/19 02/23/19 04:00 16:00 RBC 3.82 L Hgb 11.7 L MPV 12.6 H Ross % (Auto) 12.3 H Potassium Chloride Carbon Dioxide Glucose Calcium Phosphorus Magnesium Alkaline Phosphatase Total Protein Albumin Albumin (PEP) 2.93 L Albumin/Globulin Ratio Meds: Medications Acetaminophen (Tylenol) 650 mg PO Q6HP PRN PRN Reason: PAIN/FEVER > 101 Albuterol/Ipratropium (Duoneb) 3 ml NEB Q4HP PRN PRN Reason: Shortness Of Breath Allopurinol (Zylopriim) 300 mg PO QDAY [facility] Last Admin: 02/26/19 11:12 Dose: 300 mg Documented by: Artificial Tears (Artificial Tears Ophth Drops) 2 gtt OU Q1H PRN PRN Reason: Dry Eye(s) Last Admin: 02/24/19 02:08 Dose: 2 gtt Documented by: Aspirin (Aspirin) 81 mg PO DAILY [facility] Last Admin: 02/26/19 11:12 Dose: 81 mg Documented by: Dextrose (Dextrose 50%) 0 ml IV UD PRN PRN Reason: Hypoglycemia Dextrose (Dextrose 50%) 0 ml IV UD PRN PRN Reason: Hypoglycemia Diagnostic Test (Pha) (Accu-Chek) 1 each FS ACHS [facility] Last Admin: 02/26/19 16:41 Dose: 1 each Documented by: Docusate Sodium (Colace) 100 mg PO BID [facility] Last Admin: 02/26/19 11:12 Dose: 100 mg Documented by: Enoxaparin Sodium (Lovenox) 40 mg SQ DAILY [facility] Last Admin: 02/26/19 11:12 Dose: 40 mg Documented by: Glucose (Insta-Glucose) 15 gm PO PRN PRN PRN Reason: Hypoglycemia Glucose (Insta-Glucose) 15 gm PO PRN PRN PRN Reason: Hypoglycemia Potassium Chloride 40 meq/ (Dextrose) 520 mls @ 130 mls/hr IV UD PRN PRN Reason: Potassium < 3 Last Infusion: 02/26/19 15:50 Dose: Infused Documented by: Magnesium Sulfate (Magnesium Sulfate) 2 gm in 50 mls @ 50 mls/hr IV UD PRN PRN Reason: Magnesium </= 1.6 Last Infusion: 02/26/19 09:10 Dose: Infused Documented by: Sodium Chloride (Sodium Chloride 0.45%) 1,000 mls @ 75 mls/hr IV .[id number] [facility] Last Admin: 02/26/19 11:11 Dose: 75 mls/hr Documented by: Insulin Glargine (Lantus) 30 unit SQ DAILY [facility] Last Admin: 02/26/19 12:08 Dose: 30 units Documented by: Insulin Human Lispro (Humalog) 0 unit SQ ACHS [facility]; Protocol Last Admin: 02/26/19 18:10 Dose: 6 units Documented by: Lisinopril (Zestril) 10 mg PO QDAY [facility] Last Admin: 02/26/19 12:15 Dose: 10 mg Documented by: Mirtazapine (Remeron) 15 mg PO HS [facility] Last Admin: 02/25/19 20:03 Dose: 15 mg Documented by: Ondansetron HCl (Zofran) 4 mg IV Q4HP PRN PRN Reason: Nausea And Vomiting Ondansetron HCl (Zofran) 4 mg IV Q4HP PRN PRN Reason: Nausea And Vomiting Polyethylene Glycol (Miralax) 17 gm PO DAILYP PRN PRN Reason: Constipation Last Admin: 02/25/19 20:03 Dose: 17 gm Documented by: Potassium Chloride (Kdur) 40 meq PO UD PRN PRN Reason: Potssium is 3-3.5 Potassium Chloride (Kdur) 40 meq PO UD PRN PRN Reason: Potassium < 3 Senna (Senokot) 2 tab PO DAILYP PRN PRN Reason: Constipation Sodium Chloride (Saline Flush) 10 ml IV Q8 [facility] Last Admin: 02/26/19 15:00 Dose: Not Given Documented by: Tramadol HCl (Ultram) 50 mg PO Q6HP PRN PRN Reason: Pain Last Admin: 02/26/19 15:38 Dose: 50 mg Documented by: - Impressions Left Ankle follow-up IMPRESSION: 1. Minimally displaced spiral fracture of the distal fibular diaphysis/metadiaphysis. Fracture line is more evident on today's film following osseous resorption. No evidence of healing callus 2. 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 This is a new radiographic finding from the plain film less than one month ago. There is also marked periarticular soft tissue swelling which has increased. The possibility of cellulitis and osteomyelitis should be entertained. Suggest: Ankle MRI Medical - PN: A/P - Time Spent With Patient Total time spent is greater than 50% in coordination of care (as documented) at patient's floor/unit and/or counseling patient: 25 - 35 minutes - Narrative A/P Narrative: *Generalized weakness/malaise/poor appetite/increasing weakness: Concerning for symptomatic hypercalcemia vs. apathetic hyperthyroidism -PT, dietary consult, treating hypercalcemia *Hypercalcemia: Patient's hypercalcemia has started since July. -May be related to CKD -Notation of history of hyperparathyroidism in chart; parathyroid hormone in the normal range; PTHrp pending -Differential also includes myeloma given kidney disease (SPEP with hypoalbuminemia only) as well as recurrent breast cancer -With history of dry eyes, consider sarcoid though not supported by chest radiograph *Dry eyes: Onset over the last 1 to 2 weeks with decreased oral intake. Improving. -May be secondary to dehydration, improving/resolving with hydration -No other symptoms to suggest Sjogren's syndrome. *h/o Hypothyroidism: on Levothyroxine 150mcg, with evidence of over replacement. May be contributing to her symptoms as well -TSH 0.02 and Free T4 3.24 *Volume Depletion: Improving *CKD III: Was due to see nephrology for evaluation on 02/24 *Nausea/poor appetite: Improving, may have been related to hypercalcemia *Hypomagnesemia: *DM: *Morbid Obesity *Recent Left foot fx: -Follow-up radiograph with no callus formation and bony resorption of the malleolus, consider MRI P: -Discontinue IV fluids -Monitor calcium -F/U parathyroid related peptide, UPEP -Continue artificial tears as needed -Other electrolyte replacement as needed -Continue PT and OT -Wound care -Basal & SSI -Levothyroxine resumed tomorrow at 50 MCG/day -Dietary consult -Added Remeron for appetite and mood -CM for placment -ppx: Lovenox full code Medical - PN: Qual - VTE Deep Vein Thrombosis/Pulmonary Embolism Present on Admission: No
[2019-02-26] MEDS: MIRTAZAPINE 15 MG TABLET PO SCH (21:55)
[2019-02-26] MEDS: POLYETHYLENE GLYCOL 3350 17 GM PACKET PO PRN (21:55)
[2019-02-27] MEDS: 0.9 % SODIUM CHLORIDE 10 ML SYRINGE IV SCH ×3 (04:25→21:25)
[2019-02-27 06:52] LABS: ALT/SGPT 6 U/l (0-40); AST/SGOT 10 U/l (0-37); Albumin 2.4 gm/dL (3.2-5.2); Alkaline Phosphatase 133 U/L (39-117); Bilirubin,Direct < 0.2 mg/dL (0.0-0.3); Bilirubin,Total 0.3 mg/dL (0.0-1.0); Blood Urea Nitrogen 8 mg/dl (8-23); Calcium 10.3 mg/dl (8.6-10.4); Carbon Dioxide 24 mmol/L (22-30); Chloride 108 mmol/L (96-108); Globulin 2.4 gm/dL (2.2-3.7); Glomerular Filtration Rate 63; Glucose 83 mg/dL (70-105); Lactate Dehydrogenase 187 U/L (94-250); Triglycerides 127 mg/dl (<150); Uric Acid 3.3 mg/dL (2.5-8.0)
[2019-02-27 06:53] LABS: Phosphorous 2.6 mg/dL (2.7-4.5)
[2019-02-27] MEDS: INSULIN LISPRO 1 UNIT/0.01 ML UNIT SQ SCH ×4 (07:24→21:24)
[2019-02-27] MEDS: DOCUSATE SODIUM 100 MG CAPSULE PO SCH ×2 (08:54→21:20)
[2019-02-27] MEDS: INSULIN GLARGINE, HUMAN 1 UNIT/0.01 ML SQ SCH (08:54)
[2019-02-27] MEDS: ASPIRIN 81 MG TAB.CHEW PO SCH (08:54)
[2019-02-27] MEDS: ALLOPURINOL 300 MG TABLET PO SCH (08:54)
[2019-02-27] MEDS: LISINOPRIL 10 MG TABLET PO SCH (08:54)
[2019-02-27] MEDS: ENOXAPARIN 40 MG/0.4 ML SYRINGE SQ SCH (08:54)
[2019-02-27] MEDS: NEUTRA PHOS 1 PACKET PO SCH ×2 (08:54→21:20)
--- NOTE | 2019-02-27 13:50 | Internal Med Progress Note ---
Medical - PN: Subj Patient information: Note initiated : 02/27/19 at 1:48 pm Service Date, if different from initiated Date: [] Patient: Mel Peacock a 73 y/o F admitted on 02/22/19 for Barely eating, weak. Chief Complaint: f/u hypercalcemia Interval history: 02/22 Ms. Peacock is a 73 year old F Presents to the ED with generalized weakness malaise/ poor appetite/ nausea, tachycardia, dyspnea on exertion. Feeling cold all the time. Has itchy eyes. Denies sweats chest pain abdominal pain diarrhea. This is been going on for about 4 weeks, around the time she fractured her left foot. She has a Port-A-Cath for breast cancer last chemotherapy was year ago. Work-up in the ED included CT abdomen pelvis which was unremarkable. Laboratory work revealed including urine and indicative of volume depletion. TSH severely low. CXR unremarkable 02/23 Patient with hypercalcemia at presentation, has been made inpatient status due to combination of hypercalcemia and her symptoms. Interviewed patient along with her and daughter at bedside. Patient had mobility problems, but have been working with physical therapy up until the time of her distal fibula fracture, mobility impaired at that time due to pain. Since then has decreased functional status. Said minimal oral intake due to nausea with the smell of food, and is not even kept down fluids. Has very poor appetite. Has abnormal renal function, was scheduled to see nephrology tomorrow for initial evaluation. In review of records, creatinine has been generally elevated since 2016, for which I have records. Calcium was normal back on July, was elevated and November. Also had elevated TSH in July, which point levothyroxine dose was adjusted. Has history of breast cancer, reached 5-year disease-free point this past summer. Also complains of dry eyes with a feeling of "sand" in her eyes. Has been using eyedrops at home, though it sounds as if those were vasoconstrictor eyedrops. No complaints of dry mouth. 02/24 Patient has taken some p.o., states that she gets full early. Seems to do better with liquids. She related to dietary that she had lost 50 pounds in about the last year, and she is afraid of gaining the weight back. Unclear if this is contributing to her decreased oral intake. Getting little stronger, helping more with transfers from bed to commode. Eyes are still bothering her, artificial tears may be helping a little bit. 02/25 More active and feeling better today, continues to be more mobile, though still needing assist with transfers. Appetite is still poor. Trying to focus on liquids and supplements. Eyes are significantly improved. 02/26/2019 Continues to slowly progress. 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 Discussed with her daughter at bedside, calcium continues to slowly normalize. Have encouraged them that at this point she is stable for discharge, they will need to choose a skilled facility. Reiterated to the patient that I feel going to skilled facility to further regain function would be in her best interest. 02/27 No new complaints today. By mouth intake is slowly picking up. Less of an aversion to food. Family work on placement. Plan for MRI to evaluate left fibular fracture today. - Constitutional Vitals: Vital Signs Temp Pulse Resp BP Pulse Ox 98.4 F 85 22 135/75 93 02/27/19 12:02/27/19 12:00 02/27/19 12:02/27/19 12:02/27/19 12:00 Period Temp Pulse Resp BP Sys/Gaspar Pulse Ox Last 24 Hr 98.0 F-98.9 F 77-101 20-22 121-139/68-94 92-95 Intake and Output 02/26/19 02/27/19 02/27/19 21:59 05:59 13:59 Intake Total 880 1290 720 Output Total 1 151 220 Balance 879 1139 500 Weight 314 lb 8 oz Intake & Output: Intake & Output 02/26/19 02/27/19 02/27/19 21:59 05:59 13:59 Intake Total 880 1290 720 Output Total 1 151 220 Balance 879 1139 500 Weight 314 lb 8 oz Intake: Nourishment/Supplement quantity 240 (ml) IV 520 1000 Sodium Chloride 0.45% 1,000 ml 1000 @ 75 mls/hr IV .[id number] [facility] Rx# :[id number] Potassium Chloride 40 Meq In 520 Dextrose 5% in Water 500 ml @ 130 mls/hr IV UD PRN Rx#: [id number] Oral 360 290 480 Output: Void Amount 150 220 # of times incontinent of urine 1 1 Other: Meal Lunch Breakfast Percent of Meal Consumed 50% 100% Feeding Ability Independent Assist with Tray Set Up Nourishment/Supplement name boost breeze Urine Appearance Clear Urine Color Pale Stool Size Small Stool Consistency Loose Exam: General: In bed, no acute distress, awake and alert. Chest: Clear to auscultation bilaterally. Cardiovascular: Regular, trace peripheral edema, though difficult to assess with body habitus. Abdomen: Obese, soft, nontender Neuro: Alert, oriented, strength, slowly improving. Medical - PN: Obj Da - Labs CBC & Chem 7: 02/24/19 04:00 02/27/19 05:25 Labs: Abnormal Lab Results 02/27/19 02/26/19 02/25/19 05:25 04:49 04:33 Potassium 2.9 L* Chloride 109 H Carbon Dioxide 21 L Glucose 109 H 68 L Calcium 10.5 H 11.0 H Phosphorus 2.6 L 2.1 L 2.2 L Magnesium 1.5 L Alkaline Phosphatase 133 H 137 H 134 H Total Protein 4.8 L 5.0 L 5.0 L Albumin 2.4 L 2.7 L 2.4 L Albumin (PEP) Albumin/Globulin Ratio 0.9 L 02/23/19 16:00 Potassium Chloride Carbon Dioxide Glucose Calcium Phosphorus Magnesium Alkaline Phosphatase Total Protein Albumin Albumin (PEP) 2.93 L Albumin/Globulin Ratio Meds: Medications Acetaminophen (Tylenol) 650 mg PO Q6HP PRN PRN Reason: PAIN/FEVER > 101 Last Admin: 02/27/19 03:11 Dose: 650 mg Documented by: Albuterol/Ipratropium (Duoneb) 3 ml NEB Q4HP PRN PRN Reason: Shortness Of Breath Allopurinol (Zylopriim) 300 mg PO QDAY [facility] Last Admin: 02/27/19 08:54 Dose: 300 mg Documented by: Artificial Tears (Artificial Tears Ophth Drops) 2 gtt OU Q1H PRN PRN Reason: Dry Eye(s) Last Admin: 02/24/19 02:08 Dose: 2 gtt Documented by: Aspirin (Aspirin) 81 mg PO DAILY [facility] Last Admin: 02/27/19 08:54 Dose: 81 mg Documented by: Dextrose (Dextrose 50%) 0 ml IV UD PRN PRN Reason: Hypoglycemia Dextrose (Dextrose 50%) 0 ml IV UD PRN PRN Reason: Hypoglycemia Diagnostic Test (Pha) (Accu-Chek) 1 each FS [facility] Last Admin: 02/27/19 11:19 Dose: 1 each Documented by: Docusate Sodium (Colace) 100 mg PO BID [facility] Last Admin: 02/27/19 08:54 Dose: 100 mg Documented by: Enoxaparin Sodium (Lovenox) 40 mg SQ DAILY [facility] Last Admin: 02/27/19 08:54 Dose: 40 mg Documented by: Glucose (Insta-Glucose) 15 gm PO PRN PRN PRN Reason: Hypoglycemia Glucose (Insta-Glucose) 15 gm PO PRN PRN PRN Reason: Hypoglycemia Potassium Chloride 40 meq/ (Dextrose) 520 mls @ 130 mls/hr IV UD PRN PRN Reason: Potassium < 3 Last Infusion: 02/26/19 15:50 Dose: Infused Documented by: Magnesium Sulfate (Magnesium Sulfate) 2 gm in 50 mls @ 50 mls/hr IV UD PRN PRN Reason: Magnesium </= 1.6 Last Infusion: 02/26/19 09:10 Dose: Infused Documented by: Insulin Glargine (Lantus) 30 unit SQ DAILY [facility] Last Admin: 02/27/19 08:54 Dose: 30 units Documented by: Insulin Human Lispro (Humalog) 0 unit SQ [facility]; Protocol Last Admin: 02/27/19 11:21 Dose: Not Given Documented by: Lisinopril (Zestril) 10 mg PO QDAY [facility] Last Admin: 02/27/19 08:54 Dose: 10 mg Documented by: Mirtazapine (Remeron) 15 mg PO [facility] Last Admin: 02/26/19 21:55 Dose: 15 mg Documented by: Ondansetron HCl (Zofran) 4 mg IV Q4HP PRN PRN Reason: Nausea And Vomiting Ondansetron HCl (Zofran) 4 mg IV Q4HP PRN PRN Reason: Nausea And Vomiting Polyethylene Glycol (Miralax) 17 gm PO DAILYP PRN PRN Reason: Constipation Last Admin: 02/26/19 21:55 Dose: 17 gm Documented by: Potassium Chloride (Kdur) 40 meq PO UD PRN PRN Reason: Potssium is 3-3.5 Potassium Chloride (Kdur) 40 meq PO UD PRN PRN Reason: Potassium < 3 Potassium/Phosphorus/Sodium (Neutra Phos) 1 packet PO BID [facility] Stop: 02/28/19 21:01 Last Admin: 02/27/19 08:54 Dose: 1 packet Documented by: Larry (Senpaulinoot) 2 tab PO DAILYP PRN PRN Reason: Constipation Sodium Chloride (Saline Flush) 10 ml IV Q8 [facility] Last Admin: 02/27/19 04:25 Dose: Not Given Documented by: Tramadol HCl (Ultram) 50 mg PO Q6HP PRN PRN Reason: Pain Last Admin: 02/26/19 15:38 Dose: 50 mg Documented by: - Impressions IMPRESSION: 1. Minimally displaced spiral fracture of the distal fibular diaphysis/metadiaphysis. Fracture line is more evident on today's film following osseous resorption. No evidence of healing callus 2. 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 This is a new radiographic finding from the plain film less than one month ago. There is also marked periarticular soft tissue swelling whic h has increased. The possibility of cellulitis and osteomyelitis should be entertained. Suggest: Ankle MRI Medical - PN: A/P - Time Spent With Patient Total time spent is greater than 50% in coordination of care (as documented) at patient's floor/unit and/or counseling patient: 25 - 35 minutes - Narrative A/P Narrative: *Generalized weakness/malaise/poor appetite/increasing weakness: Concerning for symptomatic hypercalcemia vs. apathetic hyperthyroidism, likely multifactorial -PT, dietary consult, treating hypercalcemia--normalized *Hypercalcemia: Patient's hypercalcemia has started since July. -May be related to CKD -Notation of history of hyperparathyroidism in chart; parathyroid hormone in the normal range; PTHrp pending -Differential also includes myeloma given kidney disease (SPEP with hypoalbuminemia only) as well as recurrent breast cancer -With history of dry eyes, consider sarcoid though not supported by chest radiograph *Dry eyes: Onset over the last 1 to 2 weeks with decreased oral intake. Improving. -May be secondary to dehydration, improving/resolving with hydration -No other symptoms to suggest Sjogren's syndrome. *h/o Hypothyroidism: on Levothyroxine 150mcg, with evidence of over replacement. May be contributing to her symptoms as well -TSH 0.02 and Free T4 3.24 *Volume Depletion: Improving/resolved *CKD III: Was due to see nephrology for evaluation on 02/24 *Nausea/poor appetite: Improving, may have been related to hypercalcemia *Hypomagnesemia: *DM: *Morbid Obesity *Recent Left foot fx: -Follow-up MRI due to abnormal radiograph showing no callus formation and bony resorption of the malleolus P: -MRI of ankle -Discontinued IV fluids -Monitor calcium -F/U parathyroid related peptide, UPEP -Continue artificial tears as needed -Other electrolyte replacement as needed -Continue PT and OT -Wound care -Basal & SSI -Levothyroxine resumed at 50 MCG/day -Dietary consult -Added Remeron for appetite and mood -CM for placement-->stable for discharge -ppx: Lovenox full code Medical - PN: Qual - VTE Deep Vein Thrombosis/Pulmonary Embolism Present on Admission: No
--- NOTE | 2019-02-27 14:27 | Internal Med Progress Note ---
Medical - PN: Subj Patient information: Note initiated : 02/27/19 at 2:22 pm Service Date, if different from initiated Date: [] Patient: Mel Peacock a 73 y/o F admitted on 02/22/19 for Barely eating, weak. Chief Complaint: [] Interval history: 02/22 Ms. Peacock is a 73 year old F Presents to the ED with generalized weakness malaise/ poor appetite/ nausea, tachycardia, dyspnea on exertion. Feeling cold all the time. Has itchy eyes. Denies sweats chest pain abdominal pain diarrhea. This is been going on for a bout 4 weeks, around the time she fractured her left foot. She has a Port-A-Cath for breast cancer last chemotherapy was year ago. Work-up in the ED included CT abdomen pelvis which was unremarkable. Laboratory work revealed including urine and indicative of volume depletion. TSH severely low. CXR unremarkable 02/23 Patient with hypercalcemia at presentation, has been made inpatient status due to combination of hypercalcemia and her symptoms. Interviewed patient along with her and daughter at bedside. Patient had mobility problems, but have been working with physical therapy up until the time of her distal fibula fracture, mobility impaired at that time due to pain. Since then has decreased functional status. Said minimal oral intake due to nausea with the smell of food, and is not even kept down fluids. Has very poor appetite. Has abnormal renal function, was scheduled to see nephrology tomorrow for initial evaluation. In review of records, creatinine has been generally elevated since 2016, for which I have records. Calcium was normal back on July, was elevated and November. Also had elevated TSH in July, which point levothyroxine dose was adjusted. Has history of breast cancer, reached 5-year disease-free point this past summer. Also complains of dry eyes with a feeling of "sand" in her eyes. Has been using eyedrops at home, though it sounds as if those were vasoconstrictor eyedrops. No complaints of dry mouth. 02/24 Patient has taken some p.o., states that she gets full early. Seems to do better with liquids. She related to dietary that she had lost 50 pounds in about the last year, and she is afraid of gaining the weight back. Unclear if this is contributing to her decreased oral intake. Getting little stronger, helping more with transfers from bed to commode. Eyes are still bothering her, artificial tears may be helping a little bit. 02/25 More active and feeling better today, continues to be more mobile, though still needing assist with transfers. Appetite is still poor. Trying to focus on liquids and supplements. Eyes are significantly improved. 02/26/2019 Continues to slowly progress. Appetite continues to seem to flower buncher or picker, does not have an aversion to food, not having a mucousy/gagging sensation when she tries to eat. Discussed with her daughter at bedside, calcium continues to slowly normalize. Have encouraged them that at this point she is stable for discharge, they will need to choose a skilled facility. Reiterated to the patient that I feel going to skilled facility to further regain function would be in her best interest. 02/27 No new complaints today. By mouth intake is slowly picking up. Less of an aversion to food. Family work on placement. Plan for MRI to evaluate left fibular fracture today. - Constitutional Vitals: Vital Signs Temp Pulse Resp BP Pulse Ox 98.4 F 85 22 135/75 93 02/27/19 12:02/27/19 12:02/27/19 12:02/27/19 12:02/27/19 12:00 Period Temp Pulse Resp BP Sys/Gaspar Pulse Ox Last 24 Hr 98.0 F-98.9 F 77-101 20-22 121-139/68-94 92-95 Intake and Output 02/27/19 02/27/19 02/27/19 05:59 13:59 21:59 Intake Total 1290 720 Output Total 151 220 Balance 1139 500 Weight 142.655 kg Intake & Output: Intake & Output 02/27/19 02/27/19 02/27/19 05:59 13:59 21:59 Intake Total 1290 720 Output Total 151 220 Balance 1139 500 Weight 142.655 kg Intake: Nourishment/Supplement quantity 240 (ml) IV 1000 Sodium Chloride 0.45% 1,000 ml 1000 @ 75 mls/hr IV .[id number] [facility] Rx# :[id number] Oral 290 480 Output: Void Amount 150 220 # of times incontinent of urine 1 Other: Meal Breakfast Percent of Meal Consumed 100% Feeding Ability Assist with Tray Set Up Nourishment/Supplement name boost breeze Urine Appearance Clear Urine Color Pale Exam: General: , Awake, No acute Distress, obese Eyes/N/T: EOMI, Head/Neck: neck supple, n CV: RRR, No murmurs, Pulm: Clear b/l, no wheezing/rhonchi/rales Abd: soft, nontender, +BS x4 Ext: no clubbing/cyanosis. Mild b/l LE edema Neuro: appears quite fatigued/lethargic no focal deficits, moves all extremities, Skin: warm/dry Medical - PN: Obj Da - Labs CBC & Chem 7: 02/24/19 04:00 02/27/19 05:25 Labs: Abnormal Lab Results 02/27/19 02/26/19 02/25/19 05:25 04:49 04:33 Potassium 2.9 L* Chloride 109 H Carbon Dioxide 21 L Glucose 109 H 68 L Calcium 10.5 H 11.0 H Phosphorus 2.6 L 2.1 L 2.2 L Magnesium 1.5 L Alkaline Phosphatase 133 H 137 H 134 H Total Protein 4.8 L 5.0 L 5.0 L Albumin 2.4 L 2.7 L 2.4 L Albumin (PEP) Albumin/Globulin Ratio 0.9 L 02/23/19 16:00 Potassium Chloride Carbon Dioxide Glucose Calcium Phosphorus Magnesium Alkaline Phosphatase Total Protein Albumin Albumin (PEP) 2.93 L Albumin/Globulin Ratio Meds: Medications Acetaminophen (Tylenol) 650 mg PO Q6HP PRN PRN Reason: PAIN/FEVER > 101 Last Admin: 02/27/19 03:11 Dose: 650 mg Documented by: Albuterol/Ipratropium (Duoneb) 3 ml NEB Q4HP PRN PRN Reason: Shortness Of Breath Allopurinol (Zylopriim) 300 mg PO QDAY [facility] Last Admin: 02/27/19 08:54 Dose: 300 mg Documented by: Artificial Tears (Artificial Tears Ophth Drops) 2 gtt OU Q1H PRN PRN Reason: Dry Eye(s) Last Admin: 02/24/19 02:08 Dose: 2 gtt Documented by: Aspirin (Aspirin) 81 mg PO DAILY [facility] Last Admin: 02/27/19 08:54 Dose: 81 mg Documented by: Dextrose (Dextrose 50%) 0 ml IV UD PRN PRN Reason: Hypoglycemia Dextrose (Dextrose 50%) 0 ml IV UD PRN PRN Reason: Hypoglycemia Diagnostic Test (Pha) (Accu-Chek) 1 each FS [facility] Last Admin: 02/27/19 11:19 Dose: 1 each Documented by: Docusate Sodium (Colace) 100 mg PO BID [facility] Last Admin: 02/27/19 08:54 Dose: 100 mg Documented by: Enoxaparin Sodium (Lovenox) 40 mg SQ DAILY [facility] Last Admin: 02/27/19 08:54 Dose: 40 mg Documented by: Glucose (Insta-Glucose) 15 gm PO PRN PRN PRN Reason: Hypoglycemia Glucose (Insta-Glucose) 15 gm PO PRN PRN PRN Reason: Hypoglycemia Potassium Chloride 40 meq/ (Dextrose) 520 mls @ 130 mls/hr IV UD PRN PRN Reason: Potassium < 3 Last Infusion: 02/26/19 15:50 Dose: Infused Documented by: Magnesium Sulfate (Magnesium Sulfate) 2 gm in 50 mls @ 50 mls/hr IV UD PRN PRN Reason: Magnesium </= 1.6 Last Infusion: 02/26/19 09:10 Dose: Infused Documented by: Insulin Glargine (Lantus) 30 unit SQ DAILY [facility] Last Admin: 02/27/19 08:54 Dose: 30 units Documented by: Insulin Human Lispro (Humalog) 0 unit SQ [facility]; Protocol Last Admin: 02/27/19 11:21 Dose: Not Given Documented by: Lisinopril (Zestril) 10 mg PO QDAY [facility] Last Admin: 02/27/19 08:54 Dose: 10 mg Documented by: Mirtazapine (Remeron) 15 mg PO HS [facility] Last Admin: 02/26/19 21:55 Dose: 15 mg Documented by: Ondansetron HCl (Zofran) 4 mg IV Q4HP PRN PRN Reason: Nausea And Vomiting Ondansetron HCl (Zofran) 4 mg IV Q4HP PRN PRN Reason: Nausea And Vomiting Polyethylene Glycol (Miralax) 17 gm PO DAILYP PRN PRN Reason: Constipation Last Admin: 02/26/19 21:55 Dose: 17 gm Documented by: Potassium Chloride (Kdur) 40 meq PO UD PRN PRN Reason: Potssium is 3-3.5 Potassium Chloride (Kdur) 40 meq PO UD PRN PRN Reason: Potassium < 3 Potassium/Phosphorus/Sodium (Neutra Phos) 1 packet PO BID [facility] Stop: 02/28/19 21:01 Last Admin: 02/27/19 08:54 Dose: 1 packet Documented by: Larry (Senpaulinoot) 2 tab PO DAILYP PRN PRN Reason: Constipation Sodium Chloride (Saline Flush) 10 ml IV Q8 [facility] Last Admin: 02/27/19 14:04 Dose: 10 ml Documented by: Tramadol HCl (Ultram) 50 mg PO Q6HP PRN PRN Reason: Pain Last Admin: 02/26/19 15:38 Dose: 50 mg Documented by: Medical - PN: A/P - Time Spent With Patient Total time spent is greater than 50% in coordination of care (as documented) at patient's floor/unit and/or counseling patient: - Narrative A/P Narrative: A: *Generalized weakness/malaise/poor appetite/increasing weakness/Tachy/RIVAS: 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 REsolved -Notation of history of hyperparathyroidism in chart; parathyroid hormone in the normal range; PTHrp pending -Differential also includes myeloma given kidney disease (SPEP with hypoalbuminemia only) as well as recurrent breast cancer -With history of dry eyes, consider sarcoid though not supported by chest radiograph, No other symptoms to suggest Sjogren's. *Volume Depletion: resolved *CKD III: supposed to see nephrology outpt *Hypomag: *DM: *Morbid Obesity *Recent Left foot fx: P: -Follow-up MRI due to abnormal radiograph showing no callus formation and bony resorption of the malleolus- -F/U parathyroid related peptide, UPEP -Continue artificial tears as needed -Other electrolyte replacement as needed -Levothyroxine resumed at 50 MCG/day -Wound care -basal & SSI -Levothyroxine held -Added Remeron for appetite and mood -pt/ot -CM for placment -ppx: Lovenox full code Medical - PN: Qual - VTE Deep Vein Thrombosis/Pulmonary Embolism Present on Admission: No
--- NOTE | 2019-02-27 14:30 | Discharge Summary ---
Medical - DS: Prov Patient information: Note initiated : 02/27/19 at 2:28 pm Service Date, if different from initiated Date: [] Patient: Mel Peacock 73 y/o F admitted on 02/22/19 for Barely eating, weak. Chief Complaint: [] Date of admission: 02/22/19 03:05 Discharge date: 02/28/19 Primary care physician: Krys Cornell Consults: 02/23/19 13:34 Consult to Physician [CONS] Routine Comment: Consulting Provider: Brice Tobar Reason For Exam: Physician to Consult Medical - DS: Meds - Discharge Medications Active and Home Medications: Home Medications allopurinol 300 mg tablet 300 mg PO QDAY 12/08/17 [History Confirmed 02/22/19 Last Taken 02/20/19 09:00] aspirin 81 mg tablet,delayed release 81 mg PO QDAY 12/08/17 [History Confirmed 02/22/19 Last Taken 02/20/19 09:00] levothyroxine 150 mcg capsule 300 mcg PO QDAY 12/08/17 [History Confirmed 02/22/19 Last Taken 02/20/19 08:30] furosemide 20 mg tablet 20 mg PO QDAY 01/24/19 [History Confirmed 02/22/19 Last Taken 02/20/19 09:00] insulin aspart U-100 100 unit/mL (3 mL) subcutaneous pen See Rx Instructions SUB-Q .COMPLEX PRN 01/24/19 [History Confirmed 02/22/19 Last Taken 02/20/19 18:00] insulin glargine U-300 conc 300 unit/mL (3 mL) subcutaneous pen 30 unit SUB-Q QAM ml 01/24/19 [History Confirmed 02/22/19 Last Taken 02/20/19 09:00] krill 300 mg-omega 3 90 mg-dha 24 mg-epa 50 [id number] capsule 1 cap PO QDAY 01/24/19 [History Confirmed 02/22/19 Last Taken 02/20/19 09:00] lisinopril 10 mg tablet 10 mg PO QDAY 01/24/19 [History Confirmed 02/22/19 Last Taken 02/20/19 09:00] polyethylene glycol 3350 17 gram/dose oral powder 17 g PO QDAY PRN 01/24/19 [History Confirmed 02/22/19 Last Taken 01/30/19 12:00] sennosides 8.6 mg tablet 8.6 mg PO QDAY tab 01/24/19 [History Confirmed 1 04/25/18 Last Taken 01/23/19 12:00] tramadol 50 mg tablet See Rx Instructions PO Q6H PRN tab 01/24/19 [History Confirmed 02/22/19 Last Taken 02/19/19 08:00] Home Medications allopurinol 300 mg tablet 300 mg PO QDAY 12/08/17 [History Confirmed 02/22/19 Last Taken 02/20/19 09:00] aspirin 81 mg tablet,delayed release 81 mg PO QDAY 12/08/17 [History Confirmed 02/22/19 Last Taken 02/20/19 09:00] furosemide 20 mg tablet 20 mg PO QDAY 01/24/19 [History Confirmed 02/22/19 Last Taken 02/20/19 09:00] insulin aspart U-100 100 unit/mL (3 mL) subcutaneous pen See Rx Instructions SUB-Q .COMPLEX PRN 01/24/19 [History Confirmed 02/22/19 Last Taken 02/20/19 18:00] insulin glargine U-300 conc 300 unit/mL (3 mL) subcutaneous pen 30 unit SUB-Q QAM ml 01/24/19 [History Confirmed 02/22/19 Last Taken 02/20/19 09:00] krill 300 mg-omega 3 90 mg-dha 24 mg-epa 50 [id number] capsule 1 cap PO QDAY 01/24/19 [History Confirmed 02/22/19 Last Taken 02/20/19 09:00] lisinopril 10 mg tablet 10 mg PO QDAY 01/24/19 [History Confirmed 02/22/19 Last Taken 02/20/19 09:00] polyethylene glycol 3350 17 gram/dose oral powder 17 g PO QDAY PRN 01/24/19 [History Confirmed 02/22/19 Last Taken 01/30/19 12:00] sennosides 8.6 mg tablet 8.6 mg PO QDAY tab 01/24/19 [History Confirmed 02/22/19 Last Taken 01/23/19 12:00] tramadol 50 mg tablet See Rx Instructions PO Q6H PRN tab 01/24/19 [History C onfirmed 02/22/19 Last Taken 02/19/19 08:00] *Thyroxine held, follow up with primary care for repeat weekly free T4's and adjustment. Medical - DS: Hosp Hospital Course: 02/22 Ms. Peacock is a 73 year old F Presents to the ED with generalized weakness malaise/ poor appetite/ nausea, tachycardia, dyspnea on exertion. Feeling cold all the time. Has itchy eyes. Denies sweats chest pain abdominal pain diarrhea. This is been going on for about 4 weeks, around the time she fractured her left foot. She has a Port-A-Cath for breast cancer last chemotherapy was year ago. Work-up in the ED included CT abdomen pelvis which was unremarkable. Laboratory work revealed including urine and indicative of volume depletion. TSH severely low. CXR unremarkable 02/23 Patient with hypercalcemia at presentation, has been made inpatient status due to combination of hypercalcemia and her symptoms. Interviewed patient along with her and daughter at bedside. Patient had mobility problems, but have been working with physical therapy up until the time of her distal fibula fracture, mobility impaired at that time due to pain. Since then has decreased functional status. Said minimal oral intake due to nausea with the smell of food, and is not even kept down fluids. Has very poor appetite. Has abnormal renal function, was scheduled to see nephrology tomorrow for initial evaluation. In review of records, creatinine has been generally elevated since 2016, for which I have records. Calcium was normal back on July, was elevated and November. Also had elevated TSH in July, which point levothyroxine dose was adjusted. Has history of breast cancer, reached 5-year disease-free point this past summer. Also complains of dry eyes with a feeling of "sand" in her eyes. Has been using eyedrops at home, though it sounds as if those were vasoconstrictor eyedrops. No complaints of dry mouth. 02/24 Patient has taken some p.o., states that she gets full early. Seems to do better with liquids. She related to dietary that she had lost 50 pounds in about the last year, and she is afraid of gaining the weight back. Unclear if this is contributing to her decreased oral intake. Getting little stronger, helping more with transfers from bed to commode. Eyes are still bothering her, artificial tears may be helping a little bit. 02/25 More active and feeling better today, continues to be more mobile, though still needing assist with transfers. Appetite is still poor. Trying to focus on liquids and supplements. Eyes are significantly improved. 02/26/2019 Continues to slowly progress. Appetite continues to seem to flower picker, does not have an aversion to food, not having a mucousy/gagging sensation when she tries to eat. Discussed with her daughter at bedside, calcium continues to slowly normalize. Have encouraged them that at this point she is stable for discharge, they will need to choose a skilled facility. Reiterated to the patient that I feel going to skilled facility to further regain function would be in her best interest. 02/27 No new complaints today. By mouth intake is slowly picking up. Less of an aversion to food. Family work on placement. Plan for MRI to evaluate left fibular fracture today. 02/28 No overnight events. Stable for discharge. Discussed case with silk screen printer machine ( consult service) who recommended continuing to hold levothyroxine and check free T4 weekly. Do not restart levothyroxine until T4 within normal limits and consider reducing dose Discharge diagnosis: Weakness. Likely apathetic thyrotoxicosis hypothyroidism hypercalcemia Secondary discharge diagnosis: Volume depletion chronic kidney disease diabetes morbid obesity recent left foot fracture - Time Spent with Patient Total time spent providing and/or coordinating discharge services: Greater than 30 minutes Medical - DS: Exam - Constitutional Vitals: Vital Signs Temp Pulse Resp BP BP Pulse Ox 02/27/19 12:00 98.4 F 85 22 135/75 93 02/27/19 08:00 98.0 F 91 H 22 129/77 93 02/27/19 03:29 98.6 F 101 H 22 139/94 92 02/26/19 23:38 98.4 F 77 20 121/68 95 02/26/19 19:46 98.9 F 81 20 134/83 94 02/26/19 16:00 98.1 F 93 H 134/86 95 Intake and Output 02/27/19 02/27/19 02/27/19 05:59 13:59 21:59 Intake Total 1290 720 Output Total 151 220 Balance 1139 500 Intake: Nourishment/Supplement quantity 240 (ml) IV 1000 Sodium Chloride 0.45% 1,000 ml 1000 @ 75 mls/hr IV .[id number] [facility] Rx# :[id number] Oral 290 480 Output: Void Amount 150 220 # of times incontinent of urine 1 Other: Meal Breakfast Percent of Meal Consumed 100% Feeding Ability Assist with Tray Set Up Nourishment/Supplement name boost breeze Urine Appearance Clear Urine Color Pale Weight 142.655 kg Medical - DS: Data Labs on day of discharge: Labs from last 24 hours 02/27/19 05:25 Sodium 142 Potassium 3.3 Chloride 108 Carbon Dioxide 24 Anion Gap 10.0 BUN 8 Creatinine 0.9 GFR Calculation 63 Glucose 83 Uric Acid 3.3 Calcium 10.3 Phosphorus 2.6 L Magnesium 1.7 Total Bilirubin 0.3 Direct Bilirubin < 0.2 GGT 10 AST 10 ALT 6 Alkaline Phosphatase 133 H Lactate Dehydrogenase 187 Total Protein 4.8 L Albumin 2.4 L Globulin 2.4 Albumin/Globulin Ratio 1.0 Triglycerides 127 Medical - DS: A/P - Patient/Caregiver Discharge Instructions Activity: as per physical therapy Diet: Consistent Carbohydrate Additional Instructions: Follow-up with PCP regarding thyroid function testing. As recommended by [facility] Consult service -->hold levothyroxine until free T4 within normal limits. Check free T4 weekly Follow up with [facility] regarding the ankle fracture, we have faxed a referral to them. Prescriptions: Levothyroxine [Synthroid] 50 mcg PO DAILY #30 tab - Follow up Plan Follow up with: Estrella Luz ARNP [Nurse Practitioner] - Disposition: Xfer SNF Prognosis: Undetermined Rehab Potential: Fair I certify that the patient requires SNF services: Yes Overall status at discharge: patient is progressing back to baseline Medical - DS: Qual - VTE Deep Vein Thrombosis/Pulmonary Embolism Present on Admission: No
[2019-02-27] MEDS: MIRTAZAPINE 15 MG TABLET PO SCH (21:20)
[2019-02-27] MEDS: POLYETHYLENE GLYCOL 3350 17 GM PACKET PO PRN (21:22)
[2019-02-28] MEDS: 0.9 % SODIUM CHLORIDE 10 ML SYRINGE IV SCH (05:49)
--- NOTE | 2019-02-28 06:17 | Magnetic Resonance Report ---
CLINICAL INFORMATION: Follow-up spiral fracture of the distal fibular diaphysis. Osteolysis of the posterior malleolus on plain film evaluation for osteomyelitis COMPARISON: Plain film 02/26/2019 TECHNIQUE: Axial T1 and T2 proton density, coronal T1 (density STIR and sagittal proton density and STIR images were obtained of the left ankle. FINDINGS: Nondisplaced spiral fracture of the distal fibula diaphysis and metadiaphysis remains in anatomic alignment. A small amount of edema around the fracture site. There is no abnormality in cortical/subcortical bone of the posterior malleolus which was suspected on plain film. Plain film findings should be attributable to mild periarticular osteoporosis. The marrow signal throughout the ankle and hindfoot is, otherwise normal. Small effusions are present in the ankle mortise and talocalcaneal joints. The remaining joints of the hindfoot and midfoot are normal with alignment without arthritic changes. Tendons, sheath and ligaments are all unremarkable. There is moderate edema in the dorsal subcutaneous soft tissues of the forefoot and midfoot IMPRESSION: 1. No evidence of osteomyelitis the posterior malleolus. Marrow signal is normal in this region. Plain film findings are attributable to periarticular osteoporosis. 2. Subacute spiral fracture distal fibular diaphysis/ metadiaphysis. Anatomic alignment. 3. Small effusions in the ankle mortise and talocalcaneal joints 4. Moderate edema in the dorsal subcutaneous soft tissues of the mid foot. Interpreted and Authenticated by: Lm Hummel 02/28/19
[2019-02-28] MEDS: INSULIN LISPRO 1 UNIT/0.01 ML UNIT SQ SCH (06:49)
[2019-02-28 09:02] LABS: Albumin 16 %; Alpha-1-Globulin 3 %; Alpha-2-Globulin 10 %; Gamma Globulin 30 %; Pro/Creat Ratio 168 mg/g cre (21-161); Protein Total Random Urine 36 mg/dL (5-24)
[2019-02-28] MEDS: ENOXAPARIN 40 MG/0.4 ML SYRINGE SQ SCH (09:05)
[2019-02-28] MEDS: NEUTRA PHOS 1 PACKET PO SCH (09:05)
[2019-02-28] MEDS: ASPIRIN 81 MG TAB.CHEW PO SCH (09:06)
[2019-02-28] MEDS: LISINOPRIL 10 MG TABLET PO SCH (09:06)
[2019-02-28] MEDS: INSULIN GLARGINE, HUMAN 1 UNIT/0.01 ML SQ SCH (09:06)
[2019-02-28] MEDS: DOCUSATE SODIUM 100 MG CAPSULE PO SCH (09:06)
[2019-02-28] MEDS: ALLOPURINOL 300 MG TABLET PO SCH (09:06)
--- NOTE | 2019-02-28 09:30 | Event Note ---
Discussed case with director educational radio ( consult service) who recommended continuing to hold levothyroxine and check free T4 weekly. Do not restart levothyroxine until T4 within normal limits and consider reducing dose
[2019-02-28] MEDS ORDERED: HEPARIN SODIUM,PORCINE/PF 500 UNIT/5 ML SYRINGE IV ONE (10:13)
[2019-02-28 10:52] LABS: Free T4 (Free Thyroxine) 1.12 ng/dl (0.7-1.7)
== END 2019-02-28 11:05 | DRG 948 ==
LOC: MEDSUR 16:46 → ED 16:46 → SUATTDRO 02-22 03:05 → OBSVTOIN 02-22 03:05 → MEDSUR 02-22 03:18
PROVIDERS: ADMIT Internal Medicine; ATTEND Internal Medicine